=== PATIENT | female | born 1975 | race Caucasian/White ===

== ENCOUNTER → 2019-11-01 09:16 | Outpatient (BNVA) | payer MEDICARE, SELFPAY | PROVIDERS: Family Provider Family Medicine; PCP Family Medicine; Visit Provider Psychiatry & Neurology Psychiatry | DX: F33.42 Major depressive disorder, recurrent, in full remission (principal); F41.0 Panic disorder [episodic paroxysmal anxiety]; F60.7 Dependent personality disorder; F60.3 Borderline personality disorder; Z79.899 Other long term (current) drug therapy | CPT/HCPCS: 99213; 80061; 80335; 83036 ==

== ENCOUNTER → 2020-01-18 08:33 | Outpatient (BNVA) | payer MEDICARE, MEDICAID, SELFPAY | PROVIDERS: Family Provider Family Medicine; PCP Family Medicine; Visit Provider Psychiatry & Neurology Psychiatry | DX: F33.42 Major depressive disorder, recurrent, in full remission (principal); F41.0 Panic disorder [episodic paroxysmal anxiety]; F60.3 Borderline personality disorder; F60.7 Dependent personality disorder; F43.12 Post-traumatic stress disorder, chronic | CPT/HCPCS: 99213 ==

== ENCOUNTER → 2020-02-29 07:48 | Outpatient (BNVA) | payer MEDICARE, MEDICAID, SELFPAY | PROVIDERS: Family Provider Family Medicine; Visit Provider Specialist | DX: G43.711 Chronic migraine without aura, intractable, with status migrainosus (principal); G40.209 Localization-related (focal) (partial) symptomatic epilepsy and epileptic syndromes with complex partial seizures, not intractable, without status epilepticus | CPT/HCPCS: 64615; 99213; J0585 ==

== ENCOUNTER → 2020-03-06 08:02 | Outpatient (BNVA) | payer MEDICARE, MEDICAID, SELFPAY | PROVIDERS: Family Provider Family Medicine; Visit Provider Psychiatry & Neurology Psychiatry | DX: F33.42 Major depressive disorder, recurrent, in full remission (principal); F41.0 Panic disorder [episodic paroxysmal anxiety]; F60.3 Borderline personality disorder; F41.1 Generalized anxiety disorder | CPT/HCPCS: 99213 ==

== ENCOUNTER → 2020-03-28 07:27 | Outpatient (BNVA) | payer MEDICARE, MEDICAID, SELFPAY | PROVIDERS: Family Provider Family Medicine; Visit Provider Psychiatry & Neurology Psychiatry | DX: F41.0 Panic disorder [episodic paroxysmal anxiety] (principal); F33.42 Major depressive disorder, recurrent, in full remission; F60.3 Borderline personality disorder; F43.12 Post-traumatic stress disorder, chronic | CPT/HCPCS: 99214 ==

== ENCOUNTER → 2020-04-11 07:28 | Outpatient (BNVA) | payer MEDICARE, MEDICAID, SELFPAY | PROVIDERS: Family Provider Family Medicine; Visit Provider Psychiatry & Neurology Psychiatry | DX: F33.42 Major depressive disorder, recurrent, in full remission (principal); F41.0 Panic disorder [episodic paroxysmal anxiety]; F60.3 Borderline personality disorder; F32.81 Premenstrual dysphoric disorder | CPT/HCPCS: 99213 ==

== ENCOUNTER → 2020-06-06 09:40 | Outpatient (BNVA) | payer MEDICARE, MEDICAID, SELFPAY | PROVIDERS: Family Provider Family Medicine; Visit Provider Psychiatry & Neurology Psychiatry | DX: F33.42 Major depressive disorder, recurrent, in full remission (principal); F41.0 Panic disorder [episodic paroxysmal anxiety]; F32.81 Premenstrual dysphoric disorder; F60.3 Borderline personality disorder | CPT/HCPCS: 99213 ==

== ENCOUNTER → 2020-08-06 07:30 | Outpatient (BNVA) | payer MEDICARE, MEDICAID, SELFPAY | PROVIDERS: Family Provider Family Medicine; Visit Provider Psychiatry & Neurology Psychiatry | DX: F32.81 Premenstrual dysphoric disorder (principal); F33.42 Major depressive disorder, recurrent, in full remission; F41.0 Panic disorder [episodic paroxysmal anxiety]; F60.3 Borderline personality disorder; G43.711 Chronic migraine without aura, intractable, with status migrainosus; Z01.419 Encounter for gynecological examination (general) (routine) without abnormal findings | CPT/HCPCS: 99213 ==

== ENCOUNTER → 2020-09-02 08:05 | Outpatient (BNVA) | payer MEDICARE, MEDICAID, SELFPAY | PROVIDERS: Family Provider Family Medicine; Visit Provider Psychiatry & Neurology Psychiatry | DX: F32.81 Premenstrual dysphoric disorder (principal); F32.9 Major depressive disorder, single episode, unspecified; F41.0 Panic disorder [episodic paroxysmal anxiety]; F60.3 Borderline personality disorder; Z79.899 Other long term (current) drug therapy; G43.711 Chronic migraine without aura, intractable, with status migrainosus | CPT/HCPCS: 99215 ==

== ENCOUNTER → 2020-09-03 10:29 | Outpatient (BNVA) | payer MEDICARE, MEDICAID, SELFPAY | PROVIDERS: Family Provider Family Medicine; Visit Provider Psychiatry & Neurology Psychiatry | DX: Z79.899 Other long term (current) drug therapy (principal) | CPT/HCPCS: 80335 ==

== ENCOUNTER → 2020-09-24 07:36 | Outpatient (BNVA) | payer MEDICARE, MEDICAID, SELFPAY | PROVIDERS: Family Provider Family Medicine; PCP Family Medicine; Visit Provider Psychiatry & Neurology Psychiatry | DX: F33.9 Major depressive disorder, recurrent, unspecified (principal); F41.0 Panic disorder [episodic paroxysmal anxiety]; F60.3 Borderline personality disorder; Z79.899 Other long term (current) drug therapy | CPT/HCPCS: 99214 ==

== ENCOUNTER → 2020-10-22 07:32 | Outpatient (BNVA) | payer MEDICARE, MEDICAID, SELFPAY | PROVIDERS: Family Provider Family Medicine; PCP Family Medicine; Visit Provider Psychiatry & Neurology Psychiatry | DX: F33.42 Major depressive disorder, recurrent, in full remission (principal); G43.711 Chronic migraine without aura, intractable, with status migrainosus; F41.0 Panic disorder [episodic paroxysmal anxiety]; F60.3 Borderline personality disorder; Z79.899 Other long term (current) drug therapy | CPT/HCPCS: 99213 ==

== ENCOUNTER → 2020-11-04 09:20 | Outpatient (BNVA) | payer MEDICARE, MEDICAID, SELFPAY | PROVIDERS: Family Provider Family Medicine; PCP Family Medicine; Visit Provider Psychiatry & Neurology Psychiatry | DX: Z79.899 Other long term (current) drug therapy (principal) | CPT/HCPCS: 80061; 80335; 83036 ==

== ENCOUNTER → 2021-01-16 08:18 | Outpatient (BNVA) | payer MEDICARE, MEDICAID, SELFPAY | PROVIDERS: Family Provider Family Medicine; PCP Family Medicine; Visit Provider Psychiatry & Neurology Psychiatry | DX: F33.1 Major depressive disorder, recurrent, moderate (principal); F41.0 Panic disorder [episodic paroxysmal anxiety]; F60.3 Borderline personality disorder | CPT/HCPCS: 99214 ==

== ENCOUNTER → 2021-01-23 10:06 | Outpatient (BNVA) | payer MEDICARE, MEDICAID, SELFPAY | PROVIDERS: Family Provider Family Medicine; PCP Family Medicine; Visit Provider Psychiatry & Neurology Psychiatry | DX: F33.1 Major depressive disorder, recurrent, moderate (principal); F41.0 Panic disorder [episodic paroxysmal anxiety]; F60.3 Borderline personality disorder; F32.81 Premenstrual dysphoric disorder | CPT/HCPCS: 99214 ==

== ENCOUNTER → 2021-02-05 08:42 | Outpatient (BNVA) | payer MEDICARE, MEDICAID, SELFPAY | PROVIDERS: Family Provider Family Medicine; PCP Family Medicine; Visit Provider Psychiatry & Neurology Psychiatry | DX: F41.0 Panic disorder [episodic paroxysmal anxiety] (principal); F60.3 Borderline personality disorder; F32.81 Premenstrual dysphoric disorder; F33.0 Major depressive disorder, recurrent, mild; Z79.899 Other long term (current) drug therapy | CPT/HCPCS: 99215 ==

== ENCOUNTER → 2021-02-06 09:26 | Outpatient (BNVA) | payer MEDICARE, MEDICAID, SELFPAY | PROVIDERS: Family Provider Family Medicine; PCP Family Medicine; Visit Provider Psychiatry & Neurology Psychiatry | DX: Z79.899 Other long term (current) drug therapy (principal) | CPT/HCPCS: 80335 ==

== ENCOUNTER → 2021-02-11 07:40 | Outpatient (BNVA) | payer MEDICARE, MEDICAID, SELFPAY | PROVIDERS: Family Provider Family Medicine; PCP Family Medicine; Visit Provider Psychiatry & Neurology Psychiatry | DX: F33.2 Major depressive disorder, recurrent severe without psychotic features (principal); F41.0 Panic disorder [episodic paroxysmal anxiety]; F60.3 Borderline personality disorder; F32.81 Premenstrual dysphoric disorder | CPT/HCPCS: 99214 ==

== ENCOUNTER → 2021-02-20 08:10 | Outpatient (BNVA) | payer MEDICARE, MEDICAID, SELFPAY | PROVIDERS: Family Provider Family Medicine; PCP Family Medicine; Visit Provider Psychiatry & Neurology Psychiatry | DX: F33.0 Major depressive disorder, recurrent, mild (principal); F41.0 Panic disorder [episodic paroxysmal anxiety]; F60.3 Borderline personality disorder; F32.81 Premenstrual dysphoric disorder | CPT/HCPCS: 99214 ==

== ENCOUNTER → 2021-03-07 09:23 | Outpatient (BNVA) | payer MEDICARE, MEDICAID, SELFPAY | PROVIDERS: Family Provider Family Medicine; PCP Family Medicine; Visit Provider Psychiatry & Neurology Psychiatry | DX: F33.40 Major depressive disorder, recurrent, in remission, unspecified (principal); F32.81 Premenstrual dysphoric disorder; G43.711 Chronic migraine without aura, intractable, with status migrainosus; F60.3 Borderline personality disorder; F41.0 Panic disorder [episodic paroxysmal anxiety] | CPT/HCPCS: 99214 ==

== ENCOUNTER → 2021-04-03 08:24 | Outpatient (BNVA) | payer MEDICARE, MEDICAID, SELFPAY | PROVIDERS: Family Provider Family Medicine; PCP Family Medicine; Visit Provider Psychiatry & Neurology Psychiatry | DX: F33.40 Major depressive disorder, recurrent, in remission, unspecified (principal); F32.81 Premenstrual dysphoric disorder; F60.3 Borderline personality disorder; F41.0 Panic disorder [episodic paroxysmal anxiety] | CPT/HCPCS: 99214 ==

== ENCOUNTER → 2021-04-23 07:31 | Outpatient (BNVA) | payer MEDICARE, MEDICAID, SELFPAY | PROVIDERS: Family Provider Family Medicine; PCP Family Medicine; Visit Provider Psychiatry & Neurology Psychiatry | DX: F33.1 Major depressive disorder, recurrent, moderate (principal); F60.3 Borderline personality disorder; F41.0 Panic disorder [episodic paroxysmal anxiety]; Z79.899 Other long term (current) drug therapy | CPT/HCPCS: 99215 ==

== ENCOUNTER → 2021-04-24 09:09 | Outpatient (BNVA) | payer MEDICARE, MEDICAID, SELFPAY | PROVIDERS: Family Provider Family Medicine; PCP Family Medicine; Visit Provider Psychiatry & Neurology Psychiatry | DX: F33.1 Major depressive disorder, recurrent, moderate (principal); Z79.899 Other long term (current) drug therapy | CPT/HCPCS: 80335 ==

== ENCOUNTER → 2021-04-30 07:19 | Outpatient (BNVA) | payer MEDICARE, MEDICAID, SELFPAY | PROVIDERS: Family Provider Family Medicine; PCP Family Medicine; Visit Provider Psychiatry & Neurology Psychiatry | DX: F41.0 Panic disorder [episodic paroxysmal anxiety] (principal); F32.81 Premenstrual dysphoric disorder; F60.3 Borderline personality disorder; F33.41 Major depressive disorder, recurrent, in partial remission | CPT/HCPCS: 99214 ==

== ENCOUNTER 2021-05-06 09:41 | Outpatient (CLI) | payer MEDICARE, MEDICAID, SELFPAY ==
--- NOTE | 2021-05-06 10:13 | MM_ITS ---
WS: [id number] SCREENING DIGITAL MAMMOGRAM WITH CAD HISTORY: Z12.39 - Encounter for other screening for malignant neoplasm... COMPARISON: 02/08/2019 Bilateral CC and MLO views submitted. Computer aided detection analyzed. Breast composition: The breasts are heterogeneously dense, which may obscure small masses. No suspici ous masses, microcalcifications or architectural distortion. MM/[place] [id number] IMPRESSION: BI-RADS: 1-Negative FOLLOW UP: 1 Year Follow-up
== END 2021-05-06 09:42 | disposition home or self-care (01) ==
PROVIDERS: Visit Provider Nurse Practitioner Women's Health
DX: Z12.31 Encounter for screening mammogram for malignant neoplasm of breast (principal)
CPT/HCPCS: 77067

== ENCOUNTER → 2021-05-13 09:09 | Outpatient (BNVA) | payer MEDICARE, MEDICAID, SELFPAY | PROVIDERS: Visit Provider Psychiatry & Neurology Psychiatry | DX: F33.41 Major depressive disorder, recurrent, in partial remission (principal); Z79.899 Other long term (current) drug therapy | CPT/HCPCS: 80335 ==

== ENCOUNTER → 2021-06-02 13:50 | Outpatient (BNVA) | payer MEDICARE, MEDICAID, SELFPAY | PROVIDERS: Visit Provider Specialist | DX: G40.909 Epilepsy, unspecified, not intractable, without status epilepticus (principal); G40.209 Localization-related (focal) (partial) symptomatic epilepsy and epileptic syndromes with complex partial seizures, not intractable, without status epilepticus; G43.711 Chronic migraine without aura, intractable, with status migrainosus | CPT/HCPCS: 64615; 99214; J0585 ==

== ENCOUNTER → 2021-06-16 10:13 | Outpatient (BNVA) | payer MEDICARE, MEDICAID, SELFPAY | PROVIDERS: Visit Provider Psychiatry & Neurology Psychiatry | DX: F33.42 Major depressive disorder, recurrent, in full remission (principal); F60.3 Borderline personality disorder; F41.0 Panic disorder [episodic paroxysmal anxiety]; F32.81 Premenstrual dysphoric disorder | CPT/HCPCS: 99214 ==

== ENCOUNTER → 2021-07-03 07:27 | Outpatient (BNVA) | payer MEDICARE, MEDICAID, SELFPAY | PROVIDERS: Visit Provider Psychiatry & Neurology Psychiatry | DX: F33.42 Major depressive disorder, recurrent, in full remission (principal); F41.0 Panic disorder [episodic paroxysmal anxiety]; F32.81 Premenstrual dysphoric disorder; F60.3 Borderline personality disorder | CPT/HCPCS: 99214 ==

== ENCOUNTER → 2021-07-21 12:48 | Outpatient (BNVA) | payer MEDICARE, MEDICAID, SELFPAY | PROVIDERS: Referring Provider Specialist; Visit Provider Specialist | DX: G40.209 Localization-related (focal) (partial) symptomatic epilepsy and epileptic syndromes with complex partial seizures, not intractable, without status epilepticus (principal); G40.909 Epilepsy, unspecified, not intractable, without status epilepticus | CPT/HCPCS: 95816 ==

== ENCOUNTER → 2021-08-04 06:51 | Outpatient (BNVA) | payer MEDICARE, MEDICAID, SELFPAY | PROVIDERS: Visit Provider Psychiatry & Neurology Psychiatry | DX: F33.42 Major depressive disorder, recurrent, in full remission (principal); F60.3 Borderline personality disorder; F41.0 Panic disorder [episodic paroxysmal anxiety]; F32.81 Premenstrual dysphoric disorder | CPT/HCPCS: 99214 ==

== ENCOUNTER → 2021-08-28 12:11 | Outpatient (BNVA) | payer MEDICARE, MEDICAID, SELFPAY | PROVIDERS: PCP Family Medicine; Visit Provider Specialist | DX: G43.709 Chronic migraine without aura, not intractable, without status migrainosus (principal); G40.109 Localization-related (focal) (partial) symptomatic epilepsy and epileptic syndromes with simple partial seizures, not intractable, without status epilepticus; G40.409 Other generalized epilepsy and epileptic syndromes, not intractable, without status epilepticus | CPT/HCPCS: 64615; 99213; J0585 ==

== ENCOUNTER → 2021-09-04 08:49 | Outpatient (BNVA) | payer MEDICARE, MEDICAID, SELFPAY | PROVIDERS: Visit Provider Social Worker | DX: F33.42 Major depressive disorder, recurrent, in full remission (principal); F41.0 Panic disorder [episodic paroxysmal anxiety]; F60.3 Borderline personality disorder | CPT/HCPCS: 90837; 90834 ==

== ENCOUNTER → 2021-09-08 08:07 | Outpatient (BNVA) | payer MEDICARE, MEDICAID, SELFPAY | PROVIDERS: Visit Provider Psychiatry & Neurology Psychiatry | DX: F33.42 Major depressive disorder, recurrent, in full remission (principal); F60.3 Borderline personality disorder; F41.0 Panic disorder [episodic paroxysmal anxiety]; F32.81 Premenstrual dysphoric disorder; G43.711 Chronic migraine without aura, intractable, with status migrainosus | CPT/HCPCS: 99214 ==

== ENCOUNTER 2021-09-18 12:46 | Emergency (ER) | payer MEDICARE, MEDICAID, SELFPAY ==
[2021-09-18 12:53] VITALS: BP 126/87; PULSE 94; RESP 18; TEMP 36.3; O2SAT 98; BMI 31.1
[2021-09-18] MEDS: tetanus-diphtheria tox (adult) 0.5 mL SDV IM (13:10)
--- NOTE | 2021-09-18 13:12 | W.ED.WOUNDLC ---
HPI - Wound/Laceration General: Chief Complaint: Wound/Laceration Stated Complaint: Injury to Left Hand/Finger Time Seen by Provider: 09/18/21 12:59 Source: patient Mode of arrival: ambulatory Limitations: no limitations History of Present Illness: HPI narrative: Patient is a 45-year-old female presents to ED today with a complaint of a left index finger laceration that she sustained after cutting it on a tin can. Last tetanus is unknown. Patient copiously irrigated laceration following injury. Onset (ago): hour(s) Place: home Patient tetanus UTD: No Context: accidental Associated symptoms: Reports no associated symptoms Treatments prior to arrival: other (Irrigation) Review of Systems Musc: Reports: extremity pain (Left index finger); Denies: extremity swelling, joint swelling, joint redness or joint warmth Skin/Breast: Reports: other (Left index finger laceration) PFSH ED PFSH: Medical History Borderline personality disorder Chronic migraine without aura, intractable, with status migrainosus No pertinent past medical history neghx: htn,dm,thyroid,dvt/pe PCP: None Other skilled nursing (current) drug therapy Panic disorder [episodic paroxysmal anxiety] Partial epilepsy secondarily generalized Premenstrual dysphoric disorder Psychiatric care Surgical History History of vaginal hysterectomy (10/31/13) TVH (Still has ovaries) Dx: Menorrhagia, Dysmenorrhea, Fibroids. Performed by Dr Rivas at [facility] in [place], [place]. Family History Grandmother Stroke maternal Family/Other Diabetes maternal great aunt Denies family history of Colon cancer Ovarian cancer Heart disease Hypercholesteremia Breast cancer Hypertension Uterine cancer Thyroid disease Physical Exam Const: COMMON NORMALS: no acute distress, patient oriented x3, no limitations and alert Extremity: OTHER: Patient has an extremely small 0.5cm laceration to L lateral DIP joint; laceration is superficial; bleeding controlled; sensory intact; full ROM of DIP joint against resistance Neuro: COMMON NORMALS: patient oriented x3, moves all extremities, no focal motor deficits and no sensory deficits noted SENSORIUM/ORIENTATION: Yes alert Skin: NARRATIVE SKIN EXAM: See extremity assessment for pertinent skin findings Procedures Laceration Laceration 1: Site: hand (L index finger) Side (If applicable): left and right Size (cm): 0.5 Description: linear Depth: simple, single layer Pre-repair: wound explored and irrigated extensively Skin layer closed with: other (skin adhesive/glue) Course Vital Signs: Vital signs: Vital Signs Temperature 97.3 F L 09/18/21 12:53 Pulse Rate 88 09/18/21 13:27 Respiratory Rate 18 09/18/21 13:27 Blood Pressure 133/84 09/18/21 13:27 Pulse Oximetry 100 09/18/21 13:27 Discharge Plan Discharge Patient Disposition: Home Clinical Impression: Laceration of left index finger Qualifiers: Encounter type: initial encounter Damage to nail status: without damage Foreign body presence: without foreign body Qualified Code(s): S61.211A - Laceration without foreign body of left index finger without damage to nail, initial encounter Condition: Stable Prescriptions: No Action norgestimate-ethinyl estradiol [Sprintec (28)] 0.25-35 mg-mcg tablet 1 tab PO DAILY Qty: 84 RF: 4 diazepam [Valium] 5 mg tablet 5 mg PO QID Qty: 120 RF: 2 nortriptyline 75 mg capsule 75 mg PO .qhs Qty: 30 RF: 5 nortriptyline 50 mg capsule 50 mg PO .qhs Qty: 30 RF: 5 sertraline 100 mg tablet 100 mg PO DAILY Qty: 30 RF: 5 topiramate [Topamax] 50 mg tablet 50 mg PO .QHS Qty: 30 RF: 5 clobazam [Onfi] 20 mg tablet 20 mg PO BID Qty: 60 RF: 5 Discharge Orders: Discharge ED (Routine); Ordered 09/18/21 Ordered By: Ashley Diaz Referrals: Marcelo Bobo MD [Primary Care Provider] - Patient Instructions: Finger Laceration (ED), Skin Adhesive Care (ED) Activity Restrictions/Additional Instructions: Keep wound/laceration clean with warm soap and water twice daily. Monitor for signs of infection such as redness, swelling, increased pain, or drainage. Please seek medical re-evaluation if these occur. If your wound was closed with Steri-Strips or glue/adhesive these will fall off within the next week or so. Coding Level of Care Code ED Wood Products Manufacturer for Doroteo Brumfield
[2021-09-18 13:27] VITALS: BP 133/84; PULSE 88; RESP 18; O2SAT 100
== END 2021-09-18 13:29 | disposition home or self-care (01) ==
PROVIDERS: Emergency Provider Physician Assistant; PCP Family Medicine
DX: S61.211A Laceration without foreign body of left index finger without damage to nail, initial encounter (principal); W26.8XXA Contact with other sharp object(s), not elsewhere classified, initial encounter
CPT/HCPCS: 12001; 90471; 90714; 99283

== ENCOUNTER → 2021-09-25 12:24 | Outpatient (BNVA) | payer MEDICARE, MEDICAID, SELFPAY | PROVIDERS: Visit Provider Social Worker | DX: F33.42 Major depressive disorder, recurrent, in full remission (principal); F41.0 Panic disorder [episodic paroxysmal anxiety]; F60.3 Borderline personality disorder | CPT/HCPCS: 90837; 90834 ==

== ENCOUNTER → 2021-10-29 15:29 | Outpatient (BNVA) | payer MEDICARE, MEDICAID, SELFPAY | PROVIDERS: Visit Provider Specialist | DX: G40.209 Localization-related (focal) (partial) symptomatic epilepsy and epileptic syndromes with complex partial seizures, not intractable, without status epilepticus (principal); G40.409 Other generalized epilepsy and epileptic syndromes, not intractable, without status epilepticus; G43.711 Chronic migraine without aura, intractable, with status migrainosus; F60.3 Borderline personality disorder | CPT/HCPCS: 99214 ==

== ENCOUNTER → 2021-11-20 08:55 | Outpatient (BNVA) | payer MEDICARE, MEDICAID, SELFPAY | PROVIDERS: Visit Provider Social Worker | DX: F33.42 Major depressive disorder, recurrent, in full remission (principal); F60.3 Borderline personality disorder; F41.0 Panic disorder [episodic paroxysmal anxiety] | CPT/HCPCS: 90834 ==

== ENCOUNTER → 2021-12-01 07:41 | Outpatient (BNVA) | payer MEDICARE, MEDICAID, SELFPAY | PROVIDERS: Visit Provider Psychiatry & Neurology Psychiatry | DX: Z79.899 Other long term (current) drug therapy (principal); F33.0 Major depressive disorder, recurrent, mild; F33.42 Major depressive disorder, recurrent, in full remission; F60.3 Borderline personality disorder; F41.0 Panic disorder [episodic paroxysmal anxiety]; F32.81 Premenstrual dysphoric disorder | CPT/HCPCS: 99214 ==

== ENCOUNTER → 2021-12-04 10:57 | Outpatient (BNVA) | payer MEDICARE, MEDICAID, SELFPAY | PROVIDERS: Visit Provider Psychiatry & Neurology Psychiatry | DX: F41.0 Panic disorder [episodic paroxysmal anxiety] (principal); F60.3 Borderline personality disorder | CPT/HCPCS: 90837; 80335; 90834 ==

== ENCOUNTER → 2021-12-22 07:26 | Outpatient (BNVA) | payer MEDICARE, MEDICAID, SELFPAY | PROVIDERS: Visit Provider Psychiatry & Neurology Psychiatry | DX: F33.42 Major depressive disorder, recurrent, in full remission (principal); F60.3 Borderline personality disorder; F41.0 Panic disorder [episodic paroxysmal anxiety]; F32.81 Premenstrual dysphoric disorder; Z79.899 Other long term (current) drug therapy; F33.41 Major depressive disorder, recurrent, in partial remission | CPT/HCPCS: 99443; 99214 ==

== ENCOUNTER → 2022-02-03 10:05 | Outpatient (BNVA) | payer MEDICARE, MEDICAID, SELFPAY | PROVIDERS: Referring Provider Registered Nurse Neonatal Intensive Care; Visit Provider Otolaryngology | DX: H92.03 Otalgia, bilateral (principal); H90.0 Conductive hearing loss, bilateral; H61.23 Impacted cerumen, bilateral | CPT/HCPCS: 69210; 99203 ==

== ENCOUNTER → 2022-02-13 14:23 | Outpatient (BNVA) | payer MEDICARE, MEDICAID, SELFPAY | PROVIDERS: Visit Provider Social Worker | DX: F33.41 Major depressive disorder, recurrent, in partial remission (principal); F60.3 Borderline personality disorder; F41.0 Panic disorder [episodic paroxysmal anxiety] | CPT/HCPCS: 90837; 90834 ==

== ENCOUNTER → 2022-03-02 14:28 | Outpatient (BNVA) | payer MEDICARE, MEDICAID, SELFPAY | PROVIDERS: Visit Provider Social Worker | DX: F33.41 Major depressive disorder, recurrent, in partial remission (principal); F60.3 Borderline personality disorder; F41.0 Panic disorder [episodic paroxysmal anxiety] | CPT/HCPCS: 90837; 90834 ==

== ENCOUNTER → 2022-03-06 09:33 | Outpatient (BNVA) | payer MEDICARE, MEDICAID, SELFPAY | PROVIDERS: Visit Provider Psychiatry & Neurology Psychiatry | DX: F33.41 Major depressive disorder, recurrent, in partial remission (principal); F33.42 Major depressive disorder, recurrent, in full remission; F60.3 Borderline personality disorder; F41.0 Panic disorder [episodic paroxysmal anxiety]; Z79.899 Other long term (current) drug therapy; F32.81 Premenstrual dysphoric disorder | CPT/HCPCS: 99214 ==

== ENCOUNTER → 2022-03-30 14:32 | Outpatient (BNVA) | payer MEDICARE, MEDICAID, SELFPAY | PROVIDERS: Visit Provider Social Worker | DX: F33.41 Major depressive disorder, recurrent, in partial remission (principal); F32.81 Premenstrual dysphoric disorder; F60.3 Borderline personality disorder; F41.0 Panic disorder [episodic paroxysmal anxiety] | CPT/HCPCS: 90837; 90834 ==

== ENCOUNTER → 2022-05-11 11:57 | Outpatient (BNVA) | payer MEDICARE, MEDICAID, SELFPAY | PROVIDERS: Visit Provider Psychiatry & Neurology Psychiatry | DX: F33.42 Major depressive disorder, recurrent, in full remission (principal); F60.3 Borderline personality disorder; F41.0 Panic disorder [episodic paroxysmal anxiety]; Z79.899 Other long term (current) drug therapy; F33.41 Major depressive disorder, recurrent, in partial remission; L65.9 Nonscarring hair loss, unspecified; R63.5 Abnormal weight gain; G43.711 Chronic migraine without aura, intractable, with status migrainosus | CPT/HCPCS: 80335; 84439; 84443 ==

== ENCOUNTER → 2022-05-15 11:13 | Outpatient (BNVA) | payer MEDICARE, MEDICAID, OTHER, SELFPAY | PROVIDERS: Visit Provider Psychiatry & Neurology Psychiatry | DX: Z79.899 Other long term (current) drug therapy (principal) | CPT/HCPCS: 84481 ==

== ENCOUNTER 2022-05-19 15:27 | Outpatient (CLI) | payer MEDICARE, MEDICAID, SELFPAY ==
--- NOTE | 2022-05-19 15:34 | MM_ITS ---
WS: [id number] BILATERAL 3D TOMOSYNTHESIS DIGITAL SCREENING MAMMOGRAPHY WITH CAD CLINICAL INFORMATION: Z12.39 - Encounter for other screening for malignant neop... HISTORY: Screening mammogram. No current complaints. COMPARISON: May 06, 2021 TECHNIQUE: Bilateral CC and MLO views. FINDINGS: Scattered fibroglandular densities bilaterally. No suspicious focal mass, asymmetry, calcifications, or architectural distortion. No evidence of malignancy. MM/[place] [id number] IMPRESSION: BI-RADS: 1-Negative FOLLOW UP: 1 Year Follow-up Recommend return to annual screening mammography.
== END 2022-05-19 15:28 | disposition home or self-care (01) ==
LOC: RAD 15:27
PROVIDERS: Visit Provider Nurse Practitioner Women's Health
DX: Z12.31 Encounter for screening mammogram for malignant neoplasm of breast (principal)
CPT/HCPCS: 77063; 77067

== ENCOUNTER 2022-05-27 12:45 | Outpatient (CLI) | payer MEDICARE, MEDICAID, SELFPAY ==
--- NOTE | 2022-05-27 13:00 | US_ITS ---
WS: [id number] TRANSVAGINAL PELVIC ULTRASOUND HISTORY: R10.2 - Pelvic and perineal pain COMPARISON: 07/31/2019 Status post hysterectomy. Right ovary: 2.3 cm x 1.3 cm x 1.9 cm. Normal size and vascularity, no cystic or solid masses. Left ovary: 3.0 cm x 2.0 cm x 2.3 cm. Several small follicles associated with the LEFT ovary. No yaya d mass or increased vascularity. No free fluid. US/US transvaginal [id number] IMPRESSION: 1. Prior hysterectomy. 2. Multiple small follicles within the LEFT ovary. No solid mass identified.
== END 2022-05-27 12:46 | disposition home or self-care (01) ==
PROVIDERS: Visit Provider Nurse Practitioner Women's Health
DX: R10.2 Pelvic and perineal pain (principal); Z90.710 Acquired absence of both cervix and uterus
CPT/HCPCS: 76830

== ENCOUNTER 2022-07-06 20:00 | Outpatient (CLI) | payer MEDICARE, MEDICAID, OTHER, SELFPAY | END 2022-07-06 20:01 | disposition home or self-care (01) | LOC: SLEEP 07-07 05:14 | PROVIDERS: PCP Clinical Nurse Specialist Adult Health; Visit Provider Psychiatry & Neurology Psychiatry | DX: F33.2 Major depressive disorder, recurrent severe without psychotic features (principal); G43.711 Chronic migraine without aura, intractable, with status migrainosus; E66.9 Obesity, unspecified; R06.83 Snoring; G47.10 Hypersomnia, unspecified | CPT/HCPCS: 95810 ==

== ENCOUNTER 2022-07-09 08:25 | Outpatient (CLI) | payer MEDICARE, MEDICAID, SELFPAY ==
--- NOTE | 2022-07-09 08:30 | CTR_ITS ---
PROCEDURE INFORMATION: Exam: CT Abdomen And Pelvis Without Contrast Exam date and time: 07/09/2022 8:57 AM Age: 46 years old Clinical indication: Abdominal pain; Tenderness; Left lower quadrant (llq); Prior surgery; Surgery type: Hyst; Additional info: Left lower quadrant tenderness and possible mass palpable TECHNIQUE: Imaging protocol: Computed tomography of the abdomen and pelvis without contrast. Axial, coronal and sagittal reformatted images were created and reviewed. Radiation optimization: All CT scans at this facility use at least one of these dose optimization techniques: automated exposure control; mA and/or kV adjustment per patient size (includes targeted exams where dose is matched to clinical indication); or iterative reconstruction. COMPARISON: CT kidney stone [id number] 04/22/2018 2:38 AM RADIATION DOSE METRICS: Total DLP (mGy-cm): 1417.03 FINDINGS: Liver: Unremarkable. Gallbladder and bile ducts: No radiodense gallstones. No biliary ductal dilatation. Pancreas: Unremarkable. Spleen: Unremarkable. Adrenal glands: Normal. No mass. Kidneys and ureters: Nonobstructing left renal calculi. No hydronephrosis. Stomach and bowel: Moderate amount of retained stool in the colon. No obstruction. No bowel wall thickening. No pneumatosis. Appendix: Normal. Intraperitoneal space: No free fluid. No organized fluid collection. No free air. Vasculature: Unremarkable. No aneurysm. Lymph nodes: No pathologically enlarged lymph nodes. Urinary bladder: Unremarkable as visualized. Reproductive: Status post hysterectomy. 3.7 x 3 cm right adnexal cystic lesion. Bones/joints: No acute osseous abnormality. Soft tissues: Unremarkable. CT/CT abdomen pelvis wo con [id number] IMPRESSION: 1. 3.7 x 3 cm right adnexal cystic lesion. If clinically indicated, pelvic ultrasound may be obtained for further evaluation. 2. Moderate amount of retained stool in the colon. 3. Additional findings, as above.
== END 2022-07-09 08:26 | disposition home or self-care (01) ==
LOC: RAD 08:26
PROVIDERS: PCP Clinical Nurse Specialist Adult Health; Visit Provider Clinical Nurse Specialist Adult Health
DX: R19.04 Left lower quadrant abdominal swelling, mass and lump (principal)
CPT/HCPCS: 74176

== ENCOUNTER → 2022-07-15 13:53 | Outpatient (BNVA) | payer MEDICARE, MEDICAID, OTHER, SELFPAY | PROVIDERS: PCP Clinical Nurse Specialist Adult Health; Visit Provider Psychiatry & Neurology Psychiatry | DX: Z79.899 Other long term (current) drug therapy (principal) | CPT/HCPCS: 80061; 83036 ==

== ENCOUNTER → 2022-07-16 16:16 | Outpatient (BNVA) | payer MEDICARE, MEDICAID, SELFPAY | PROVIDERS: PCP Clinical Nurse Specialist Adult Health; Visit Provider Nurse Practitioner Women's Health | DX: R10.2 Pelvic and perineal pain (principal); N83.201 Unspecified ovarian cyst, right side | CPT/HCPCS: 76830 ==

== ENCOUNTER 2022-09-13 13:35 | Emergency (ER) | payer MEDICARE, MEDICAID, SELFPAY ==
[2022-09-13 13:52] VITALS: BP 180/120; PULSE 116; RESP 18; TEMP 35.8; O2SAT 96
--- NOTE | 2022-09-13 14:05 | XRR_ITS ---
PROCEDURE INFORMATION: Exam: XR Left Knee Exam date and time: 09/13/2022 3:47 PM Age: 46 years old Clinical indication: Injury or trauma; Fall; Blunt trauma; Knee; Left TECHNIQUE: Imaging protocol: Radiologic exam of the Left knee. Views: 3 views. COMPARISON: No relevant prior studies available. FINDINGS: Bones/joints: Visualized osseous structures are intact. Negative for fracture. Joint spaces are preserved. Soft tissues: Normal. XR/XR knee LT 3V* [id number] IMPRESSION: No acute findings.
--- NOTE | 2022-09-13 15:04 | ED_ITS ---
HPI - Fall General: Chief Complaint: Fall Stated Complaint: fell and hurt left knee. Time Seen by Provider: 09/13/22 14:29 History of Present Illness: Patient is a 46-year-old female comes to the ED with left knee pain. Patient says approximately 6 weeks ago she fell from a ladder approximately 2 to 3 feet in the air and landed on her left knee. She was able to get up and ambulate on left knee with mild pain and did not think much of it and did not get checked out. Approximately 2 weeks ago she fell from a standing position and her left kneecap at the floor again. Since the second injury her left knee pain is gotten a lot worse. She has trouble ambulating on it due to the pain. She rates the pain currently a 7 out of 10. Sometimes when she bends it she hears a pop. Straighten her knee out causes more pain. She has been taking Tylenol and ibuprofen at home to help with pain. Associated symptoms-after fall: Denies abdominal pain, chest pain, headache(s), hematuria or neck pain Review of Systems Const: Denies: fever(s), chills or fatigue Eyes: Denies: change in vision or eye discomfort ENMT: Denies: throat pain, odynophagia, nasal discharge or nasal congestion Card: Denies: chest pain, palpitations, edema, swelling of feet/ankles, dyspnea on exertion or orthopnea Resp: Denies: dyspnea, productive cough or non-productive cough GI: Denies: abdominal pain, nausea, vomiting, diarrhea, constipation or hematochezia : Denies: flank pain, dysuria or hematuria Musc: Reports: extremity pain (Left knee pain); Denies: neck pain, back pain or extremity swelling Skin/Breast: Denies: rash or new lesions Neuro: Denies: headache(s), numbness in extremities or weakness in extremities PFS ED PFSH: Medical History Borderline personality disorder Chronic migraine without aura, intractable, with status migrainosus Loss of hair Other skilled nursing (current) drug therapy Panic disorder [episodic paroxysmal anxiety] Partial epilepsy secondarily generalized Premenstrual dysphoric disorder Psychiatric care Surgical History History of vaginal hysterectomy (10/31/13) TVH (Still has ovaries) Dx: Menorrhagia, Dysmenorrhea, Fibroids. Performed by Dr Rivas at [facility] in [place], [place]. Family History Grandmother Stroke maternal Family/Other Diabetes maternal great aunt Denies family history of Colon cancer Ovarian cancer Heart disease Hypercholesteremia Breast cancer Hypertension Uterine cancer Thyroid disease Social History Smoking and tobacco status: never smoked Second hand smoke exposure: No Smoking risk assessment/counseling performed?: No Alcohol intake: never Desire information about alcohol rehabilitation?: No Counseling given: No Desire information about substance/drug rehabilitation?: No Counseling given: No Physical Exam Const: COMMON NORMALS: no acute distress, patient oriented x3 and alert GENERAL APPEARANCE: cooperative HENMT: COMMON NORMALS: normocephalic HEAD & SCALP: normocephalic MOUTH: Normal oral and palatal mucosa present THROAT: posterior oropharynx normal and uvula midline Neck/C-Spine: COMMON NORMALS: supple GENERAL: Yes normal visual inspection Resp: COMMON NORMALS: normal respiratory effort, No retractions, No use of accessory muscles and clear to auscultation bilaterally AUSCULTATION: clear to auscultation bilaterally Cardio: COMMON NORMALS: regular rate, regular rhythm, S1 normal heart sound present, S2 normal heart sound present, No gallops present (Cardio), No clicks present (Cardio), No murmurs present (Cardio) and Peripheral pulses 2+ throughout RATE: regular rate RHYTHM: regular rhythm HEART SOUNDS: S1 normal heart sound present and S2 normal heart sound present PERIPHERAL PULSES: Peripheral pulses 2+ throughout GI: COMMON NORMALS: Normal to inspection, nondistended, normoactive bowel sounds present, Soft to palpation, non-tender and no masses PALPATION: Yes Soft to palpation : COMMON NORMALS: Yes no CVA tenderness BLADDER/KIDNEY EXAM: Yes no CVA tenderness Back/Pelvis: COMMON NORMALS: no CVA tenderness Extremity: NARRATIVE EXTREMITY EXAM: Left knee?she has some tenderness over her patella. Full range of motion. Neurovascular intact distally. She tried to weight-bear in room and was limping and minimizing any weight on left leg. Neuro: COMMON NORMALS: patient oriented x3 SENSORIUM/ORIENTATION: Yes alert GAIT: Yes Normal gait present Skin: GENERAL SKIN EXAM: dry skin Course Vital Signs: Vital signs: Vital Signs Temperature 96.5 F L 09/13/22 13:52 Pulse Rate 74 09/13/22 15:45 Respiratory Rate 14 09/13/22 15:45 Blood Pressure 141/74 09/13/22 15:45 Pulse Oximetry 97 09/13/22 15:45 MDM - Fall Medical Decision Making Patient is a 46-year-old female comes to the ED with left knee pain. Patient says approximately 6 weeks ago she fell from a ladder approximately 2 to 3 feet in the air and landed on her left knee. Vitals are stable. Patient has some t enderness over her left patella but the rest of exam is benign. neurovascular intact distally. X-ray of left knee showed no acute findings or fractures. Patient was diagnosed with left knee pain and I placed an order with case management for patient to be scheduled with a follow-up appointment for further evaluation of left knee pain. She was discharged home with some meloxicam to help with pain. Return to ED precautions given. Use your at home crutches to help with ambulation. Patient understood agree with plan. Lab Data Radiology Impressions Knee X-Ray 09/13/22 14:05 IMPRESSION: No acute findings. Discharge Plan Discharge Patient Disposition: Home Clinical Impression: Knee pain, left Qualifiers: Chronicity: acute Qualified Code(s): M25.562 - Pain in left knee Condition: Stable Prescriptions: New meloxicam 15 mg tablet 15 mg PO DAILY Qty: 15 0RF No Action norgestimate-ethinyl estradiol [Sprintec (28)] 0.25-35 mg-mcg tablet 1 tab PO DAILY Qty: 84 3RF Rx Instructions: switch to a new pack after taking the third week, do not take last weeks pills nortriptyline 50 mg capsule 50 mg PO .qhs Qty: 30 11RF Rx Instructions: Take with 75mg capsule for total daily dose of 125mg. nortriptyline 75 mg capsule 75 mg PO .qhs Qty: 30 11RF Rx Instructions: Take with 50mg capsule for total nightly dose of 125mg. sertraline 100 mg tablet 100 mg PO DAILY Qty: 30 11RF aripiprazole [Abilify] 2 mg tablet 2 mg PO .qhs Qty: 30 5RF diazepam 5 mg tablet 5 mg PO BID Qty: 60 5RF albuterol sulfate [Ventolin HFA] 90 mcg/actuation HFA aerosol inhaler 1 inh inhalation Q4H PRN (Reason: bronchospasm) Qty: 8.5 0RF azithromycin 250 mg tablet See Rx Instructions PO .COMPLEX Qty: 6 0RF Rx Instructions: take 500 mg today (day 1), then 250 mg for 4 days (days 2-5) PO clobazam [Onfi] 20 mg tablet 20 mg PO BID Qty: 60 5RF prednisone 20 mg tablet 20 mg PO DAILY Qty: 2 0RF Discharge Orders: Discharge ED (Routine); Ordered 09/13/22 Ordered By: Jacob Downs Referrals: Jerry Velazquez WIRE COILER [Primary Care Provider] - Discharge Diet: Regular Discharge Activity: Limit activity as instructed and Use walker/crutches as instructed Patient Instructions: Knee Pain (ED) Activity Restrictions/Additional Instructions: Follow-up with medical provider as directed. Case management should be contacting in the next several days to set up an appointment with Ortho for follow-up on knee pain. Use crutches and limit weightbearing to help with ambulation. Rest, ice and elevate left knee. Take medications as prescribed. Return to the ER or your medical provider if condition worsens. Please read and understand discharge instructions. Thank you for choosing [facility] for your healthcare needs today. Please realize this is an emergency room and that we are providing you with a medical screening exam and this may not be complete and all inclusive of all the testing and or work up that you may need to determine your ailment or severity of your illness. It is very important that you follow up as instructed or that you return to the Emergency Department should you have concerns or if your condition changes or worsens in any way. Coding Level of Care Code ED Facing Cutting Machine Operator for Doroteo Brumfield Exam Comprehensive
[2022-09-13] MEDS: ketorolac 60 mg/2 mL INJ IM (15:31)
[2022-09-13 15:45] VITALS: BP 141/74; PULSE 74; RESP 14; O2SAT 97
--- NOTE | 2022-09-14 11:33 | DCPLANNER ---
Addendum entered by Sarai Swanson 10/06/22 13:39: Patient had a follow up appointment with ortho - patient did not attend appointment. Addendum entered by Sarai Swanson 09/17/22 09:30: Patient has a follow up appointment scheduled for Thursday, September 22, 2022 at 3:[address] Lew at ortho. Clinic will call patient with appointment information. Original Note: telehealth case manager had message to schedule a follow up appointment for patient with ortho. telehealth case manager sent patients information to the front office staff at ortho. Patients information will be printed and reviewed. Clinic will call patient with appointment information.
== END 2022-09-13 15:44 | disposition home or self-care (01) ==
PROVIDERS: Emergency Provider Physician Assistant; PCP Clinical Nurse Specialist Adult Health
DX: M25.562 Pain in left knee (principal)
CPT/HCPCS: 73562; 96372; 99284; J1885

== ENCOUNTER 2022-09-21 01:44 | Emergency (ER) | payer MEDICARE, MEDICAID, SELFPAY ==
[2022-09-21 01:45] VITALS: BP 157/86; PULSE 97; RESP 18; TEMP 37.1; O2SAT 98; BMI 34.7
--- NOTE | 2022-09-21 01:49 | ECG_ITS ---
[facility] Test Date: 2022-09-21 Pat Name: Leydi Souza Department: Room: Gender: Female Equine Science Instructor: : 1975 Requested By: Nela Uribe Order Number: [id number] Izzy MD: Asad Mcfadden M.D. Measurements Intervals [place] Rate: 98 P: 58 AR: 152 QRS: 31 QRSD: 93 T: 37 QT: 354 QTc: 452 Interpretive Statements SINUS RHYTHM POSSIBLE LEFT ATRIAL ENLARGEMENT [-0.1mV P-WAVE IN V1/V2] POSSIBLE ANTERIOR MYOCARDIAL INFARCTION , PROBABLY OLD [30 ms Q WAVE IN V3/V4, OR R < 0.2 mV IN V4] No previous ECG available for comparison Electronically Signed On 09-21-2022 14:21:37 CLINICAL QUALITY ANALYST by Asad Mcfadden M.D. [id number]
--- NOTE | 2022-09-21 01:49 | XRR_ITS ---
PROCEDURE INFORMATION: Exam: XR Chest Exam date and time: 09/21/2022 3:01 AM Age: 46 years old Clinical indication: Chest pressure; Patient HX: Right sided chest pain since fall two weeks ago; Additional info: Cp TECHNIQUE: Imaging protocol: Radiologic exam of the chest. Views: 1 view. COMPARISON: CR XR chest 1V [id number] 09/20/2017 6:00 PM FINDINGS: Lungs: Unremarkable. No consolidation. Pleural spaces: Unremarkable. No pleural effusion. No pneumothorax. Heart/Mediastinum: Unremarkable. No cardiomegaly. Bones/joints: Unremarkable. XR/XR chest 1V portable [id number] IMPRESSION: No acute findings.
--- NOTE | 2022-09-21 01:50 | W.ED.CHESTPA ---
HPI - Chest Pain General: Chief Complaint: Abdominal Pain Stated Complaint: rib pain Time Seen by Provider: 09/21/22 01:45 Source: EMS Mode of arrival: EMS Limitations: no limitations History of Present Illness: 46-year-old female states that she was reaching down to grab something at 9 tonight she states she felt a pop in her right lower chest states that since then she been having right-sided chest pain. States it is worsened throughout the night is currently a 7 out of 10 its much worse when she moves her arm she palpates a spot improved with rest denies any shortness of breath denies any radiation of pain. Associated symptoms: Deny abdominal pain, dyspnea, fever(s), nausea or vomiting Review of Systems Const: Denies: fever(s), chills, body aches or change in appetite Eyes: Denies: blurry vision or eye discomfort ENMT: Denies: throat pain or dental pain Card: Reports: chest pain Resp: Denies: dyspnea GI: Denies: abdominal pain, nausea, vomiting or diarrhea : Denies: dysuria Musc: Denies: neck pain or back pain Skin/Breast: Denies: rash Neuro: Denies: headache(s) Psych: Denies: depression Milind/Lymph: Denies: easy bruising All/Imm: Denies: urticaria PFSH ED PFSH: Medical History Borderline personality disorder Chronic migraine without aura, intractable, with status migrainosus Loss of hair 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 Performed by Dr Rivas at [facility] in [place], [place]. Family History Grandmother Stroke maternal Family/Other Diabetes maternal great aunt Denies family history of Colon cancer Ovarian cancer Heart disease Hypercholesteremia Breast cancer Hypertension Uterine cancer Thyroid disease Social History Smoking and tobacco status: never smoked Second hand smoke exposure: No Smoking risk assessment/counseling performed?: No Alcohol intake: never Desire information about alcohol rehabilitation?: No Counseling given: No Desire information about substance/drug rehabilitation?: No Counseling given: No Physical Exam Const: COMMON NORMALS: no acute distress, patient oriented x3 and healthy appearing HENMT: COMMON NORMALS: normocephalic and atraumatic HEAD & SCALP: normocephalic and atraumatic Eye: COMMON NORMALS: Equal, round and reactive pupils present and EOMs intact bilaterally PUPIL: Yes Equal, round and reactive pupils present Neck/C-Spine: COMMON NORMALS: full ROM and supple Chest: COMMONS NORMALS: normal inspection of the chest OTHER: point tender over right chest Resp: COMMON NORMALS: normal respiratory effort, No retractions, No use of accessory muscles and clear to auscultation bilaterally AUSCULTATION: clear to auscultation bilaterally Cardio: COMMON NORMALS: regular rate, regular rhythm and No murmurs present (Cardio) RATE: regular rate RHYTHM: regular rhythm GI: COMMON NORMALS: Normal to inspection, nondistended, normoactive bowel sounds present, Soft to palpation, non-tender and no masses PALPATION: Yes Soft to palpation Extremity: COMMON NORMALS: normal to inspection and full ROM Neuro: COMMON NORMALS: patient oriented x3, moves all extremities and no focal motor deficits Psych: COMMON NORMALS: mental status grossly normal, Normal thought process present and cooperative THOUGHT PROCESS: Normal thought process present Skin: COMMON NORMALS: no rashes or lesions noted and no wounds GENERAL SKIN EXAM: no rashes or lesions noted Course Vital Signs: Vital signs: Vital Signs Temperature 98.8 F 09/21/22 01:45 Pulse Rate 97 09/21/22 01:45 Respiratory Rate 18 09/21/22 01:45 Blood Pressure 157/86 09/21/22 01:45 Pulse Oximetry 98 09/21/22 01:45 Oxygen Delivery Me thod 09/21/22 01:45 MDM - Chest Pain Medical Decision Making Patient presents here with chest wall pain from an injury she is well-appearing here x-ray and EKG are normal she is stable for discharge she is to follow-up with PCP and return if worsening. Discharge Plan Discharge Patient Disposition: Home Clinical Impression: Chest wall pain Condition: Stable Prescriptions: New Naprosyn 500 mg tablet 500 mg PO BID PRN (Reason: pain) Qty: 20 0RF No Action norgestimate-ethinyl estradiol [Sprintec (28)] 0.25-35 mg-mcg tablet 1 tab PO DAILY Qty: 84 3RF Rx Instructions: switch to a new pack after taking the third week, do not take last weeks pills nortriptyline 50 mg capsule 50 mg PO .qhs Qty: 30 11RF Rx Instructions: Take with 75mg capsule for total daily dose of 125mg. nortriptyline 75 mg capsule 75 mg PO .qhs Qty: 30 11RF Rx Instructions: Take with 50mg capsule for total nightly dose of 125mg. sertraline 100 mg tablet 100 mg PO DAILY Qty: 30 11RF aripiprazole [Abilify] 2 mg tablet 2 mg PO .qhs Qty: 30 5RF diazepam 5 mg tablet 5 mg PO BID Qty: 60 5RF albuterol sulfate [Ventolin HFA] 90 mcg/actuation HFA aerosol inhaler 1 inh inhalation Q4H PRN (Reason: bronchospasm) Qty: 8.5 0RF azithromycin 250 mg tablet See Rx Instructions PO .COMPLEX Qty: 6 0RF Rx Instructions: take 500 mg today (day 1), then 250 mg for 4 days (days 2-5) PO clobazam [Onfi] 20 mg tablet 20 mg PO BID Qty: 60 5RF prednisone 20 mg tablet 20 mg PO DAILY Qty: 2 0RF meloxicam 15 mg tablet 15 mg PO DAILY Qty: 15 0RF Discharge Orders: Discharge ED (Routine); Ordered 09/21/22 Ordered By: Nela Uribe Referrals: Jerry Velazquez CARPET SEWING MACHINE OPERATOR [Primary Care Provider] - 1-3 days Discharge Diet: Advance as tolerated Discharge Activity: Resume usual activity Patient Instructions: Chest Wall Pain (ED) Coding Level of Care Code ED Network Intern for Doroteo Fwd Exam Comprehensive
[2022-09-21] MEDS: HYDROcodone-acetaminophen 7.5-325 mg Tablet 1 TAB PO (01:59)
[2022-09-21 02:34] VITALS: RESP 16
== END 2022-09-21 02:30 | disposition home or self-care (01) ==
PROVIDERS: Emergency Provider Emergency Medicine; PCP Clinical Nurse Specialist Adult Health
DX: R07.89 Other chest pain (principal)
CPT/HCPCS: 71045; 93005; 99284

== ENCOUNTER → 2022-09-22 11:40 | Outpatient (BNVA) | payer MEDICARE, MEDICAID, SELFPAY | PROVIDERS: PCP Clinical Nurse Specialist Adult Health; Visit Provider Nurse Practitioner Women's Health | DX: N89.8 Other specified noninflammatory disorders of vagina (principal) | CPT/HCPCS: 87491; 87591; 87661 ==

== ENCOUNTER 2022-10-27 08:39 | Emergency (ER) | payer MEDICARE, MEDICAID, SELFPAY ==
[2022-10-27] VITALS (21 sets, daily range): BP systolic 167; BP diastolic 105; PULSE 93–100; RESP 22–42; TEMP 36.4; O2SAT 98–99
--- NOTE | 2022-10-27 08:53 | XR_ITS ---
WS: [id number] Portable AP upright chest, 10/27/2022 Clinical Data: dyspnea/cough Comparison: Chest, 09/21/2022 Findings: There is patchy opacity at the right cardiophrenic angle which may represent atelectasis an d/or minimal pneumonia. No nodules, masses or effusions are seen. The heart is normal. The pulmonary vascularity is not increased. No pneumothorax is seen. There are monitor leads on the chest wall. XR/XR chest 1V portable 25250 Impression: Minimal patchy opacity in right lower lobe which may represent atelectasis and/ or minimal pneumonia.
--- NOTE | 2022-10-27 09:03 | ECG_ITS ---
[facility] Test Date: 2022-10-27 Pat Name: Leydi Souza Department: Room: Gender: Female Mold Setter: : 1975 Requested By: Emir Renee Order Number: [id number] Izzy MD: Asad Mcfadden M.D. Measurements Intervals [place] Rate: 97 P: 49 [place]: 164 QRS: 93 QRSD: 90 T: 42 QT: 357 QTc: 455 Interpretive Statements SINUS RHYTHM BORDERLINE RIGHT AXIS DEVIATION [QRS AXIS > 90] Compared to ECG 09/21/2022 02:01:19 Myocardial infarct finding no longer present Electronically Signed On 10-27-2022 20:25:28 DETECTIVE HOMICIDE SQUAD by Asad Mcfadden M.D. [email or web address]
--- NOTE | 2022-10-27 09:06 | W.ED.SOB ---
HPI - SOB/Dyspnea General: Chief Complaint: Shortness of Breath/Dyspnea Stated Complaint: SOB Time Seen by Provider: 10/27/22 08:50 Source: patient Mode of arrival: ambulatory History of Present Illness: HPI Narrative: 46-year-old female presents to the emergency room with complaints of shortness of breath she has been going on for a week she states lying flat makes it worse she cannot nonproductive cough she relates it to a previous had a series of symptoms she had an she was told she had a bronchitis feels like she has been wheezing quite a bit. No vomiting or diarrhea no fever no abdominal or chest pain. MD elicited complaint: shortness of breath and cough Onset (ago): day(s) Timing: constant Severity: mild Exacerbating factors: nothing Relieving factors: nothing Associated symptoms: Reports chest congestion; Deny abdominal pain, chest pain, cough, diaphoresis, dizziness, extremity pain, fever(s), hemoptysis, lightheadedness, myalgias, nausea, orthopnea, palpitations, paresthesias, polydipsia, polyuria, rash, syncope or vomiting Treatment prior to arrival: none Review of Systems Const: Denies: fever(s) or diaphoresis Card: Denies: chest pain, palpitations, lightheadedness, syncope or orthopnea Resp: Reports: chest congestion; Denies: hemoptysis GI: Denies: abdominal pain, nausea or vomiting Musc: Denies: extremity pain Neuro: Denies: dizziness Endo: Denies: polyuria or polydipsia PFSH ED PFSH: Medical History Borderline personality disorder Chronic migraine without aura, intractable, with status migrainosus Loss of hair 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 Performed by Dr Rivas at [facility] in [place], [place]. Family History Grandmother Stroke maternal Family/Other Diabetes maternal great aunt Denies family history of Colon cancer Ovarian cancer Heart disease Hypercholesteremia Breast cancer Hypertension Uterine cancer Thyroid disease Physical Exam Const: COMMON NORMALS: no acute distress GENERAL APPEARANCE: cooperative and comfortable ORIENTATION/CONSCIOUSNESS: Yes awake, Yes oriented to person, Yes oriented to place and Yes oriented to time HENMT: COMMON NORMALS: normocephalic, atraumatic, hearing grossly normal bilaterally, external ears normal, EAC's normal, TM's normal bilaterally, Normal nasal mucous membranes and turbinates present, moist oral mucous membranes and oropharynx normal HEAD & SCALP: normocephalic and atraumatic NOSE: Normal nasal mucous membranes and turbinates present EXTERNAL EAR: Yes external ears normal EXTERNAL AUDITORY CANAL: EAC's normal TYMPANIC MEMBRANE: TM's normal bilaterally Resp: COMMON NORMALS: normal respiratory effort, No retractions, No use of accessory muscles and clear to auscultation bilaterally AUSCULTATION: clear to auscultation bilaterally Cardio: COMMON NORMALS: regular rate, regular rhythm and No murmurs present (Cardio) RATE: regular rate RHYTHM: regular rhythm GI: COMMON NORMALS: Soft to palpation and No hepatosplenomegaly present AUSCULTATION: Yes normoactive bowel sounds PALPATION: Yes Soft to palpation, No Tenderness to palpation present (GI), No Guarding due to palpation present (GI) and Yes No hepatosplenomegaly present Extremity: COMMON NORMALS: normal to inspection, capillary refill normal, no clubbing, cyanosis or edema, no calf tenderness and no pedal edema Neuro: SENSORIUM/ORIENTATION: Yes oriented to person, Yes oriented to place and Yes oriented to time Skin: COMMON NORMALS: no rashes or lesions noted GENERAL SKIN EXAM: no rashes or lesions noted Course Vital Signs: Vital signs: Vital Signs Temperature 97.6 F 10/27/22 08:58 Pulse Rate 93 10/27/22 10:30 Respiratory Rate 33 H 10/27/22 09:40 Blood Pressure 167/105 10/27/22 10:35 Pulse Oximetry 99 10/27/22 10:30 MDM - SOB/Dyspnea Medical Decision Making Patient hyperventilating when she first arrived ABG verifies. Chest x-ray shows questionable area of pneumonia on the right lower lobe exam is unremarkable. Since she is complaining of symptoms would not treat with a course of Levaquin however follow-up with her primary care return if worsens. Medical Records I reviewed the patient's medical records. Lab Data I reviewed the patient's lab results. 10/27/22 09:03 10/27/22 09:03 Labs/Radiology: Radiology Impressions Chest X-Ray 10/27/22 08:53 Impression: Minimal patchy opacity in right lower lobe which may represent atelectasis and/or minimal pneumonia. Laboratory Results WBC 9.4 10^3/uL (4.0-10.0) 10/27/22 09:03 RBC 4.14 10^6/uL (4.1-5.3) 10/27/22 09:03 Hgb 12.4 g/dL (11.5-15.3) 10/27/22 09:03 Hct 40.1 % (37.0-47.0) 10/27/22 09:03 MCV 96.9 fl (81-99) 10/27/22 09:03 MCH 30.0 pg (28.0-34.0) 10/27/22 09:03 MCHC 30.9 g/dL (30.0-36.0) 10/27/22 09:03 RDW 11.7 % (12.1-15.1) L 10/27/22 09:03 Plt Count 309 10^3/cmm (130-400) 10/27/22 09:03 MPV 10.0 fL (7.4-10.4) 10/27/22 09:03 Neut % (Auto) 63.5 % 10/27/22 09:03 Lymph % (Auto) 30.2 % 10/27/22 09:03 [place] % (Auto) 3.7 % 10/27/22 09:03 Eos % (Auto) 1.8 % 10/27/22 09:03 Baso % (Auto) 0.5 % 10/27/22 09:03 Neut # (Auto) 5.93 10^3/uL (1.8-7.7) 10/27/22 09:03 Lymph # (Auto) 2.8 10^3/uL (0.8-4.8) 10/27/22 09:03 [place] # (Auto) 0.4 10^3/uL (0.2-0.9) 10/27/22 09:03 Eos # (Auto) 0.2 10^3/uL (0.0-0.8) 10/27/22 09:03 Baso # (Auto) 0.1 10^3/uL (0.0-0.1) 10/27/22 09:03 Nucleated RBC % (auto) 0 % 10/27/22 09:03 Nucleated RBCs # 0.0 /100WBC 10/27/22 09:03 Specimen Type Arterial 10/27/22 09:14 Sample Site Radial, left 10/27/22 09:14 ABG pH 7.52 (7.35-7.45) H 10/27/22 09:14 ABG pCO2 27.3 mmHg (35-45) L 10/27/22 09:14 ABG pO2 99.6 mmHg (80.0-100.0) 10/27/22 09:14 ABG HCO3 26.0 mmol/L (22-26) 10/27/22 09:14 ABG O2 Saturation 97.9 10/27/22 09:14 ABG Base Excess 5.0 mmol/L (-2.0-2.0) H 10/27/22 09:14 Brian Test Pos 10/27/22 09:14 A-a O2 Gradient 1.7 mmHg (5-10) L 10/27/22 09:14 Hematocrit 38.1 % (37-47) 10/27/22 09:14 Hgb O2 Saturation 97.4 % (95-100) 10/27/22 09:14 Carboxyhemoglobin < 1.0 %THgb (0.4-20.1) 10/27/22 09:14 Methemoglobin 0.1 % (0.4-1.5) L 10/27/22 09:14 Total Hemoglobin 12.4 g/dL (12-16) 10/27/22 09:14 Sodium 139.0 mmol/L (131-143) 10/27/22 09:14 Potassium 3.3 mmol/L (3.5-5.0) L 10/27/22 09:14 Glucose 91.0 mg/dL (70-115) 10/27/22 09:14 Ionized Calcium 1.2 mmol/L (1.1-1.4) 10/27/22 09:14 O2 Delivery Device Room air 10/27/22 09:14 FiO2 21.0 % 10/27/22 09:14 Utilization Review Nurse ID Cak 10/27/22 09:14 Sodium 138 mmol/L (136-145) 10/27/22 09:03 Potassium 3.6 mmol/L (3.5-5.1) 10/27/22 09:03 Chloride 102 mmol/L (98-107) 10/27/22 09:03 Carbon Dioxide 23 mmol/L (22-29) 10/27/22 09:03 Anion Gap 16.6 (5-19) 10/27/22 09:03 BUN 7 mg/dL (6-20) 10/27/22 09:03 Creatinine 0.7 mg/dL (0.5-0.9) 10/27/22 09:03 GFR Calculation 90.5 mL/min (90-130) 10/27/22 09:03 Glucose 94 mg/dL (65-115) 10/27/22 09:03 Calculated Osmolality 284 mOsm/kg (285-295) L 10/27/22 09:03 Calcium 9.7 mg/dL (8.5-10.5) 10/27/22 09:03 Total Bilirubin 0.2 mg/dL (0.15-1.2) 10/27/22 09:03 AST 25 U/L (0-32) 10/27/22 09:03 ALT 23 U/L (0-33) 10/27/22 09:03 Alkaline Phosphatase 97 U/L (35-105) 10/27/22 09:03 Total Protein 6.4 g/dL (6.6-8.7) L 10/27/22 09:03 Albumin 3.5 g/dL (3.5-5.2) 10/27/22 09:03 Globulin 2.9 g/dL (1.3-4.6) 10/27/22 09:03 Discharge Plan Discharge Patient Disposition: Home Clinical Impression: Community acquired pneumonia, Hyperventilation Condition: Stable Prescriptions: New albuterol sulfate 90 mcg/actuation HFA aerosol inhaler 2 inh INHALATION Q4H PRN (Reason: shortness of breath or wheezing) Qty: 18 0RF levofloxacin 750 mg tablet 750 mg PO DAILY 7 Days Qty: 7 0RF No Action norgestimate-ethinyl estradiol [Sprintec (28)] 0.25-35 mg-mcg tablet 1 tab PO DAILY Qty: 84 3RF Rx Instructions: switch to a new pack after taking the third week, do not take last weeks pills sertraline 100 mg tablet 100 mg PO DAILY Qty: 30 11RF diazepam 5 mg tablet 5 mg PO BID Qty: 60 5RF nystatin-triamcinolone 100,000-0.1 unit/gram-% ointment 1 applic topical BID PRN (Reason: VULVITIS) Qty: 15 0RF Rx Instructions: USE BID X 5 DAYS INITIALLY, THEN PRN albuterol sulfate [Ventolin HFA] 90 mcg/actuation HFA aerosol inhaler 1 inh inhalation Q4H PRN (Reason: bronchospasm) Qty: 8.5 0RF clobazam [Onfi] 20 mg tablet 20 mg PO BID Qty: 60 5RF nortriptyline 75 mg capsule 75 mg PO BEDTIME Rx Instructions: Take with 50mg capsule for total nightly dose of 125mg. nortriptyline 50 mg capsule 50 mg PO BEDTIME Rx Instructions: Take with 75mg capsule for total daily dose of 125mg. Abilify 2 mg tablet 2 mg PO BEDTIME Discharge Orders: Discharge ED (Routine); Ordered 10/27/22 Ordered By: Emir Davila Referrals: Jerry Velazquez, CROWN AND BRIDGE TECHNICIAN [Primary Care Provider] - Discharge Diet: Usual diet Discharge Activity: Resume usual activity Patient Instructions: Opioid Safety, Pain Management Activity Restrictions/Additional Instructions: You were seen today for cough and shortness of breath. Blood gas showed that when you first arrived you are hyperventilating. Chest x-ray there is a questionable however pneumonia at the base of the lung your CBC is normal. We will start you on Levaquin 750 mg once a day for 7 days and use albuterol as needed follow-up with your primary care doctor if you are not improving. Coding Level of Care Code ED Generator Switchboard Operator for Doroteo Brumfield
[2022-10-27 09:20] LABS: Basophils # 0.1 10^3/uL (0.0-0.1); Basophils % 0.5 %; Eosinophils # 0.2 10^3/uL (0.0-0.8); Eosinophils % 1.8 %; Hematocrit 40.1 % (37.0-47.0); Hemoglobin 12.4 g/dL (11.5-15.3); Lymphocytes # 2.8 10^3/uL (0.8-4.8); Lymphocytes % 30.2 %; Mean Corpuscular HGB Conc 30.9 g/dL (30.0-36.0); Mean Corpuscular Volume 96.9 fl (81-99); Monocytes # 0.4 10^3/uL (0.2-0.9); Monocytes % 3.7 %; Neutrophils # 5.93 10^3/uL (1.8-7.7); Neutrophils % 63.5 %; Nucleated Red Blood Cells % 0 %; Platelet Count 309 10^3/cmm (130-400); Red Blood Count 4.14 10^6/uL (4.1-5.3); Red Cell Distribution Width 11.7 % (12.1-15.1); White Blood Count 9.4 10^3/uL (4.0-10.0)
[2022-10-27 09:25] LABS: ABG PH Result 7.52 (7.35-7.45); Blood Gas Allen Test Pos; Blood Gas Operator Identificat CAK; Blood Gas Sample Site Radial, left; Blood Gas Sample Type Arterial; Ionized Calcium Level - ABG 1.2 mmol/L (1.1-1.4); Oxygen Device ROOM AIR; Potassium Level - ABG 3.3 mmol/L (3.5-5.0)
[2022-10-27 09:31] LABS: ABG PCO2 27.3 mmHg (35-45); Alveolar-Arterial Oxygen Gradi 1.7 mmHg (5-10); Arterial Blood Gas Hematocrit 38.1 % (37-47); Carboxyhemoglobin < 1.0 %THgb (0.4-20.1); HGB O2 Sat 97.4 % (95-100); Methemoglobin 0.1 % (0.4-1.5); Oxygen Saturation ABG 97.9; PO2 ABG 99.6 mmHg (80.0-100.0); Total Hemoglobin 12.4 g/dL (12-16)
[2022-10-27 09:40] LABS: Alanine Aminotransferase 23 U/L (0-33); Albumin Level 3.5 g/dL (3.5-5.2); Alkaline Phosphatase 97 U/L (35-105); Anion Gap 16.6 (5-19); Aspartate Amino Transferase 25 U/L (0-32); Blood Urea Nitrogen 7 mg/dL (6-20); Calcium 9.7 mg/dL (8.5-10.5); Carbon Dioxide 23 mmol/L (22-29); Chloride 102 mmol/L (98-107); Globulin 2.9 g/dL (1.3-4.6); Glomerular Filtration Rate 90.5 mL/min (90-130); Glucose 94 mg/dL (65-115); Osmolality Calculated 284 mOsm/kg (285-295); Potassium 3.6 mmol/L (3.5-5.1); Sodium 138 mmol/L (136-145); Total Bilirubin 0.2 mg/dL (0.15-1.2); Total Protein 6.4 g/dL (6.6-8.7)
== END 2022-10-27 10:41 | disposition home or self-care (01) ==
PROVIDERS: Emergency Provider Family Medicine; PCP Clinical Nurse Specialist Adult Health
DX: J18.9 Pneumonia, unspecified organism (principal); R06.4 Hyperventilation
CPT/HCPCS: 36600; 71045; 80051; 80053; 82330; 82805; 85025; 93005; 99285

== ENCOUNTER 2022-11-05 06:41 | Emergency (ER) | payer MEDICARE, MEDICAID, SELFPAY ==
[2022-11-05 06:47] VITALS: BP 127/83; PULSE 124; RESP 20; TEMP 36.6; O2SAT 97; BMI 36.6
--- NOTE | 2022-11-05 07:03 | ED_ITS ---
HPI - Headache General: Chief Complaint: Headache Stated Complaint: migraine Time Seen by Provider: 11/05/22 06:48 Source: patient Mode of arrival: ambulatory History of Present Illness: 46-year-old female presents emergency room c omplaining headache and left-sided neck pain no recent trauma. She is not on any anticoagulants. She is hyperventilating at the time of presentation. No other localizing neuro symptoms no difficulty speech swallowing or vision. She localizes her pain to the posterior cervical muscles of the neck on the left side they are worsened with palpation and movement. She has not noted any swollen lymph nodes. MD elicited complaint: headache Onset (ago): day(s) Onset description: gradually Location: left and occipital Severity: moderate Quality & Timing: aching Exacerbating factors: none, light and noise Relieving factors: nothing Associated symptoms: Deny chest pain, confusion, cough, diaphoresis, eye pain, eye redness, fever(s), lightheadedness, loss of vision, malaise, nausea, neck stiffness, numbness, paresthesias, photophobia, pre-syncope, rash, seizures, short of breath, sound sensitivity, syncope, vomiting or weakness Treatments prior to arrival: none Review of Systems Const: Denies: fever(s), chills, malaise or diaphoresis ENMT: Denies: throat pain, ear or mastoid pain, nasal discharge or nasal congestion Card: Denies: chest pain, lightheadedness, syncope or pre-syncope Resp: Denies: dyspnea, productive cough or non-productive cough GI: Reports: abdominal pain; Denies: nausea or vomiting : Denies: flank pain, difficulty voiding, dysuria, urinary frequency or urinary urgency Musc: Reports: neck pain Skin/Breast: Denies: rash Neuro: Denies: confusion PFSH ED PFSH: Medical History Borderline personality disorder Chronic migraine without aura, intractable, with status migrainosus Loss of hair 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 Performed by Dr Rivas at [facility] in [place], [place]. Family History Grandmother Stroke maternal Family/Other Diabetes maternal great aunt Denies family history of Colon cancer Ovarian cancer Heart disease Hypercholesteremia Breast cancer Hypertension Uterine cancer Thyroid disease Physical Exam Const: GENERAL APPEARANCE: cooperative and comfortable ORIENTATION/CONSCIOUSNESS: Yes awake, Yes oriented to person, Yes oriented to place and Yes oriented to time HENMT: COMMON NORMALS: normocephalic, atraumatic and hearing grossly normal bilaterally HEAD & SCALP: normocephalic and atraumatic Eye: COMMON NORMALS: Equal, round and reactive pupils present, EOMs intact bilaterally, conjunctivae normal and no scleral icterus CONJUNCTIVA: Yes conjunctivae normal PUPIL: Yes Equal, round and reactive pupils present DIRECT OPHTHALMOSCOPY: No photophobia Neck/C-Spine: COMMON NORMALS: full ROM, no lymphadenopathy, supple and no JVD Lymph: LYMPHATIC: no lymphadenopathy noted and no lymphedema noted Resp: COMMON NORMALS: normal respiratory effort, No retractions, No use of accessory muscles and clear to auscultation bilaterally AUSCULTATION: clear to auscultation bilaterally Cardio: COMMON NORMALS: no JVD, regular rate, regular rhythm and No murmurs present (Cardio) RATE: regular rate RHYTHM: regular rhythm GI: COMMON NORMALS: Soft to palpation and No hepatosplenomegaly present AUSCULTATION: Yes normoactive bowel sounds PALPATION: Yes Soft to palpation, No Tenderness to palpation present (GI), No Guarding due to palpation present (GI) and Yes No hepatosplenomegaly present Extremity: COMMON NORMALS: normal to inspection, capillary refill normal, no clubbing, cyanosis or edema, no calf tenderness and no pedal edema Neuro: SENSORIUM/ORIENTATION: Yes oriented to person, Yes oriented to place and Yes oriented to time Skin: COMMON NORMALS: no rashes or lesions noted GENERAL SKIN EXAM: no rashes or lesions noted Course Vital Signs: Vital signs: Vital Signs Temperature 97.9 F 11/05/22 06:47 Pulse Rate 107 H 11/05/22 07:28 Respiratory Rate 20 H 11/05/22 06:47 Blood Pressure 160/98 11/05/22 09:25 Pulse Oximetry 93 11/05/22 09:17 Oxygen Delivery Me thod 11/05/22 09:17 MDM - Headache Medical Decision Making Patient improved with anxiety controlled by Haldol. We will try to give her Ativan she said she was allergic to it. We checked at [facility] she was a patient's average is no shortness of time she has not been seen for quite some time and evidently is on their walk-in only list. Her symptoms have resolved now that her anxiety is better we are going to discharge her from here and going to have her taken to the crisis stabilization unit and see if they can help her find some resources maybe adjust some of her anxiety medications to prevent recurrent ER visits that we have been seeing. Medical Records I reviewed the patient's medical records. Lab Data I reviewed the patient's lab results. Discharge Plan Discharge Patient Disposition: Home Clinical Impression: Headache, Hyperventilation, Anxiety Condition: Stable Prescriptions: No Action norgestimate-ethinyl estradiol [Sprintec (28)] 0.25-35 mg-mcg tablet 1 tab PO DAILY Qty: 84 3RF Rx Instructions: switch to a new pack after taking the third week, do not take last weeks pills sertraline 100 mg tablet 100 mg PO DAILY Qty: 30 11RF diazepam 5 mg tablet 5 mg PO BID Qty: 60 5RF nystatin-triamcinolone 100,000-0.1 unit/gram-% ointment 1 applic topical BID PRN (Reason: VULVITIS) Qty: 15 0RF Rx Instructions: USE BID X 5 DAYS INITIALLY, THEN PRN albuterol sulfate [Ventolin HFA] 90 mcg/actuation HFA aerosol inhaler 1 inh inhalation Q4H PRN (Reason: bronchospasm) Qty: 8.5 0RF clobazam [Onfi] 20 mg tablet 20 mg PO BID Qty: 60 5RF nortriptyline 75 mg capsule 75 mg PO BEDTIME Rx Instructions: Take with 50mg capsule for total nightly dose of 125mg. nortriptyline 50 mg capsule 50 mg PO BEDTIME Rx Instructions: Take with 75mg capsule for total daily dose of 125mg. Abilify 2 mg tablet 2 mg PO BEDTIME albuterol sulfate 90 mcg/actuation HFA aerosol inhaler 2 inh INHALATION Q4H PRN (Reason: shortness of breath or wheezing) Qty: 18 0RF Discharge Orders: Discharge ED (Routine); Ordered 11/05/22 Ordered By: Emir Davila Referrals: Jerry Velazquez, VOCATIONAL REHABILITATION SUPERVISOR [Primary Care Provider] - Discharge Diet: Usual diet Patient Instructions: Opioid Safety, Pain Management Activity Restrictions/Additional Instructions: You had several visits to the ER recently much of your physical symptoms at the time you presented seem to be driven by anxiety. I think he would benefit from intervention at the crisis stabilization unit. You were given medications here to alleviate your anxiety which have helped however in the future it would be best to establish better treatment regimen and coping patterns to avoid anxiety leading to further ER visits. You will be discharged from the emergency room and brought to the crisis stabilization unit will they will try to assist you with this. Coding Level of Care Code ED Communications And Signals Supervisor for Doroteo Brumfield Exam Comprehensive
[2022-11-05] MEDS: sodium chloride 0.9% 1,000 ML 999 ML IV (07:17)
[2022-11-05] MEDS: orphenadrine 30 mg/mL Inj 2 mL 60 MG IVP (07:18)
[2022-11-05] MEDS: ketorolac 30 mg/mL INJ IVP (07:18)
[2022-11-05] MEDS: promethazine 25 mg/mL SDV 1 mL IM (07:19)
[2022-11-05 07:28] VITALS: BP 176/96; PULSE 107; O2SAT 98
[2022-11-05 08:25] VITALS: BP 176/96; O2SAT 100
[2022-11-05] MEDS: haloperidol inj 5 mg/mL INJ 1 mL 2 MG IM (08:56)
[2022-11-05 09:17] VITALS: BP 180/106; O2SAT 93
[2022-11-05 09:25] VITALS: BP 160/98
== END 2022-11-05 10:29 | disposition home or self-care (01) ==
PROVIDERS: Emergency Provider Family Medicine; PCP Clinical Nurse Specialist Adult Health
DX: R51.9 Headache, unspecified (principal); F41.9 Anxiety disorder, unspecified; R06.4 Hyperventilation
CPT/HCPCS: 96361; 96372; 96374; 96375; 99284; J1630; J1885; J2360; J2550; J7030

== ENCOUNTER → 2023-01-20 07:42 | Outpatient (BNVA) | payer MEDICARE, MEDICAID, SELFPAY | PROVIDERS: PCP Clinical Nurse Specialist Adult Health; Visit Provider Specialist | DX: G43.711 Chronic migraine without aura, intractable, with status migrainosus (principal); M54.81 Occipital neuralgia; L97.318 Non-pressure chronic ulcer of right ankle with other specified severity; L97.328 Non-pressure chronic ulcer of left ankle with other specified severity | CPT/HCPCS: 64405; 64450; 99214; J1030; J3490 ==

== ENCOUNTER 2023-01-22 04:54 | Emergency (ER) | payer MEDICARE, MEDICAID, SELFPAY ==
--- NOTE | 2023-01-22 04:57 | ECG_ITS ---
[facility] Test Date: 2023-01-22 Pat Name: Leydi Souza Department: Room: Gender: Female Recruiting And Selection Consultant: : 1975 Requested By: Nela Uribe Order Number: [id number] Izzy MD: Zackary Johnson M.D. Measurements Intervals [place] Rate: 79 P: 59 IA: 148 QRS: 45 QRSD: 92 T: 40 QT: 357 QTc: 410 Interpretive Statements SINUS RHYTHM Compared to ECG 10/27/2022 09:03:16 No significant changes Electronically Signed On 01-22-2023 15:53:43 CDT by Zackary Johnson M.D. [id number]
--- NOTE | 2023-01-22 04:57 | XRR_ITS ---
PROCEDURE INFORMATION: Exam: XR Chest Exam date and time: 01/22/2023 5:20 AM Age: 47 years old Clinical indication: Left-sided; Patient HX: C/O left sided chest pain. Hypertensive. ; Additional info: Cp TECHNIQUE: Imaging protocol: Radiologic exam of the chest. Views: 1 view. COMPARISON: CR XR chest 1V portable [id number] 09/21/2022 3:01 AM FINDINGS: Lungs: Unremarkable. No consolidation. Pleural spaces: Unremarkable. No pleural effusion. No pneumothorax. Heart/Mediastinum: Unremarkable. No cardiomegaly. Bones/joints: Unremarkable. XR/XR chest 1V portable [id number] IMPRESSION: No acute findings.
[2023-01-22 05:11] VITALS: BP 164/106; PULSE 100; RESP 20; TEMP 36.7; O2SAT 98; BMI 37.1
--- NOTE | 2023-01-22 05:16 | W.ED.CHESTPA ---
HPI - Chest Pain General: Chief Complaint: Chest Pain Stated Complaint: Pain Left Part of Chest\Had two Weeks Time Seen by Provider: 01/22/23 04:58 Source: patient Mode of arrival: ambulatory Limitations: no limitations History of Present Illness: 47-year-old female states she been having chest pain for last 2 weeks states been a sharp needlelike pain last seconds states has been intermittent nature she states she had more tonight than typical so she got concerned she does have a history of anxiety she denies any shortness of breath she denies any worsening proving factors denies any pain currently. Associated symptoms: Deny abdominal pain, dyspnea, fever(s), nausea or vomiting Review of Systems Const: Denies: fever(s), chills, body aches or change in appetite Eyes: Denies: blurry vision or eye discomfort ENMT: Denies: throat pain or dental pain Card: Reports: chest pain Resp: Denies: dyspnea GI: Denies: abdominal pain, nausea, vomiting or diarrhea : Denies: dysuria Musc: Denies: neck pain or back pain Skin/Breast: Denies: rash Neuro: Denies: headache(s) Psych: Denies: depression Milind/Lymph: Denies: easy bruising All/Imm: Denies: urticaria PFSH ED PFSH: Medical History Borderline personality disorder Chronic migraine without aura, intractable, with status migrainosus Loss of hair 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 [place] [facility] [place]. Family History Grandmother Stroke maternal Family/Other Diabetes maternal great aunt Denies family history of Colon cancer Ovarian cancer Heart disease Hypercholesteremia Breast cancer Hypertension Uterine cancer Thyroid disease Physical Exam Const: COMMON NORMALS: no acute distress, patient oriented x3 and healthy appearing HENMT: COMMON NORMALS: normocephalic and atraumatic HEAD & SCALP: normocephalic and atraumatic Eye: COMMON NORMALS: Equal, round and reactive pupils present and EOMs intact bilaterally PUPIL: Yes Equal, round and reactive pupils present Neck/C-Spine: COMMON NORMALS: full ROM and supple Chest: COMMONS NORMALS: normal inspection of the chest and normal palpation of entire chest wall Resp: COMMON NORMALS: normal respiratory effort, No retractions, No use of accessory muscles and clear to auscultation bilaterally AUSCULTATION: clear to auscultation bilaterally Cardio: COMMON NORMALS: regular rate, regular rhythm and No murmurs present (Cardio) RATE: regular rate RHYTHM: regular rhythm GI: COMMON NORMALS: Normal to inspection, nondistended, normoactive bowel sounds present, Soft to palpation, non-tender and no masses PALPATION: Yes Soft to palpation Extremity: COMMON NORMALS: normal to inspection and full ROM Neuro: COMMON NORMALS: patient oriented x3, moves all extremities and no focal motor deficits Psych: COMMON NORMALS: mental status grossly normal, Normal thought process present and cooperative THOUGHT PROCESS: Normal thought process present Skin: COMMON NORMALS: no rashes or lesions noted and no wounds GENERAL SKIN EXAM: no rashes or lesions noted Course Vital Signs: Vital signs: Vital Signs Temperature 98.0 F 01/22/23 05:11 Pulse Rate 98 01/22/23 05:33 Respiratory Rate 15 01/22/23 05:33 Blood Pressure 165/101 01/22/23 05:33 Pulse Oximetry 98 01/22/23 05:33 Oxygen Delivery Me thod 01/22/23 05:11 [facility] - Chest Pain Medical Decision Making Patient presents for chest pains atypical in nature EKG x-ray are all normal she is well-appearing here with no pain her pains been on for 2 weeks her troponins normal do not believe she needs a 2-hour Trope she is to follow-up with her PCP Lab Data 01/22/23 05:22 01/22/23 05:22 Radiology Impressions Chest X-Ray 01/22/23 04:57 IMPRESSION: No acute findings. Laboratory Results WBC 9.5 10^3/uL (4.0-10.0) 01/22/23 05:22 RBC 4.44 10^6/uL (4.1-5.3) 01/22/23 05:22 Hgb 13.4 g/dL (11.5-15.3) 01/22/23 05:22 Hct 41.5 % (37.0-47.0) 01/22/23 05:22 MCV 93.5 fl (81-99) 01/22/23 05:22 MCH 30.2 pg (28.0-34.0) 01/22/23 05:22 MCHC 32.3 g/dL (30.0-36.0) 01/22/23 05:22 RDW 12.3 % (12.1-15.1) 01/22/23 05:22 Plt Count 313 10^3/cmm (130-400) 01/22/23 05:22 MPV 10.3 fL (7.4-10.4) 01/22/23 05:22 Neut % (Auto) 60.5 % 01/22/23 05:22 Lymph % (Auto) 31.2 % 01/22/23 05:22 [place] % (Auto) 5.5 % 01/22/23 05:22 Eos % (Auto) 2.1 % 01/22/23 05:22 Baso % (Auto) 0.4 % 01/22/23 05:22 Neut # (Auto) 5.72 10^3/uL (1.8-7.7) 01/22/23 05:22 Lymph # (Auto) 3.0 10^3/uL (0.8-4.8) 01/22/23 05:22 [place] # (Auto) 0.5 10^3/uL (0.2-0.9) 01/22/23 05:22 Eos # (Auto) 0.2 10^3/uL (0.0-0.8) 01/22/23 05:22 Baso # (Auto) 0.0 10^3/uL (0.0-0.1) 01/22/23 05:22 Nucleated RBC % (auto) 0 % 01/22/23 05:22 Nucleated RBCs # 0.0 /100WBC 01/22/23 05:22 PT 13.40 SECONDS (12.1-14.9) 01/22/23 05:22 INR 0.99 (0.8-1.2) 01/22/23 05:22 Sodium 138 mmol/L (136-145) 01/22/23 05:22 Potassium 3.3 mmol/L (3.5-5.1) L 01/22/23 05:22 Chloride 103 mmol/L (98-107) 01/22/23 05:22 Carbon Dioxide 21 mmol/L (22-29) L 01/22/23 05:22 Anion Gap 17.3 (5-19) 01/22/23 05:22 BUN 21 mg/dL (6-20) H 01/22/23 05:22 Creatinine 0.7 mg/dL (0.5-0.9) 01/22/23 05:22 GFR Calculation 90.1 mL/min (90-130) 01/22/23 05:22 Glucose 92 mg/dL (65-115) 01/22/23 05:22 Calculated Osmolality 289 mOsm/kg (285-295) 01/22/23 05:22 Calcium 10.1 mg/dL (8.5-10.5) 01/22/23 05:22 Total Bilirubin 0.2 mg/dL (0.15-1.2) 01/22/23 05:22 AST 24 U/L (0-32) 01/22/23 05:22 ALT 21 U/L (0-33) 01/22/23 05:22 Alkaline Phosphatase 73 U/L (35-105) 01/22/23 05:22 Troponin T Baseline 6 ng/L (0-10) 01/22/23 05:22 Total Protein 7.1 g/dL (6.6-8.7) 01/22/23 05:22 Albumin 3.9 g/dL (3.5-5.2) 01/22/23 05:22 Globulin 3.2 g/dL (1.3-4.6) 01/22/23 05:22 Lipase 35 U/L (13-60) 01/22/23 05:22 EKG Data EKG 1: I personally reviewed and interpreted this EKG as follows: EKG interpretation date: 01/22/23 EKG interpretation time: 05:17 Interpretation: nsr hr [address] or t wave abnormalities qrs 92 qtc 392 Discharge Plan Discharge Patient Disposition: Home Clinical Impression: Chest pain Condition: Stable Prescriptions: No Action sertraline 100 mg tablet 100 mg PO DAILY Qty: 30 11RF diazepam 5 mg tablet 5 mg PO BID Qty: 60 5RF nystatin-triamcinolone 100,000-0.1 unit/gram-% ointment 1 applic topical BID PRN (Reason: VULVITIS) Qty: 15 0RF Rx Instructions: USE BID X 5 DAYS INITIALLY, THEN PRN amoxicillin-pot clavulanate [Augmentin] 500-125 mg tablet 1 tab PO TID 7 Days Qty: 21 0RF albuterol sulfate [Ventolin HFA] 90 mcg/actuation HFA aerosol inhaler 1 inh inhalation Q4H PRN (Reason: bronchospasm) Qty: 8.5 0RF clobazam [Onfi] 20 mg tablet 20 mg PO BID Qty: 60 5RF norgestimate-ethinyl estradiol [Sprintec (28)] 0.25-35 mg-mcg tablet See Rx Instructions .ROUTE .COMPLEX Qty: 84 2RF Dose Instruction: TAKE 1 TABLET BY MOUTH ONCE DAILY SWITCH TO A NEW PACK AFTER TAKING THE THIRD WEEK. DO NOT TAKE LAST WEEKS PILLS Rx Instructions: TAKE 1 TABLET BY MOUTH ONCE DAILY SWITCH TO A NEW PACK AFTER TAKING THE THIRD WEEK. DO NOT TAKE LAST WEEKS PILLS nortriptyline 75 mg capsule 75 mg PO BEDTIME Rx Instructions: Take with 50mg capsule for total nightly dose of 125mg. nortriptyline 50 mg capsule 50 mg PO BEDTIME Rx Instructions: Take with 75mg capsule for total daily dose of 125mg. 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
[2023-01-22 05:26] VITALS: BP 173/97; PULSE 92; RESP 16; O2SAT 99
[2023-01-22 05:29] LABS: Basophils % 0.4 %; Eosinophils # 0.2 10^3/uL (0.0-0.8); Eosinophils % 2.1 %; Hematocrit 41.5 % (37.0-47.0); Hemoglobin 13.4 g/dL (11.5-15.3); Lymphocytes % 31.2 %; Mean Corpuscular HGB Conc 32.3 g/dL (30.0-36.0); Mean Corpuscular Hemoglobin 30.2 pg (28.0-34.0); Mean Corpuscular Volume 93.5 fl (81-99); Mean Platelet Volume 10.3 fL (7.4-10.4); Monocytes # 0.5 10^3/uL (0.2-0.9); Monocytes % 5.5 %; Neutrophils # 5.72 10^3/uL (1.8-7.7); Neutrophils % 60.5 %; Nucleated Red Blood Cells % 0 %; Platelet Count 313 10^3/cmm (130-400); Red Blood Count 4.44 10^6/uL (4.1-5.3); Red Cell Distribution Width 12.3 % (12.1-15.1); White Blood Count 9.5 10^3/uL (4.0-10.0)
[2023-01-22] MEDS: labetalol 5 mg/mL SDV 20mL 10 MG IVP (05:31)
[2023-01-22 05:33] VITALS: BP 165/101; PULSE 98; RESP 15; O2SAT 98
[2023-01-22 05:43] LABS: INR 0.99 (0.8-1.2)
[2023-01-22 05:49] LABS: Alanine Aminotransferase 21 U/L (0-33); Albumin Level 3.9 g/dL (3.5-5.2); Alkaline Phosphatase 73 U/L (35-105); Anion Gap 17.3 (5-19); Aspartate Amino Transferase 24 U/L (0-32); Blood Urea Nitrogen 21 mg/dL (6-20); Calcium 10.1 mg/dL (8.5-10.5); Carbon Dioxide 21 mmol/L (22-29); Chloride 103 mmol/L (98-107); Globulin 3.2 g/dL (1.3-4.6); Glomerular Filtration Rate 90.1 mL/min (90-130); Glucose 92 mg/dL (65-115); Lipase 35 U/L (13-60); Osmolality Calculated 289 mOsm/kg (285-295); Potassium 3.3 mmol/L (3.5-5.1); Sodium 138 mmol/L (136-145); Total Bilirubin 0.2 mg/dL (0.15-1.2); Total Protein 7.1 g/dL (6.6-8.7)
[2023-01-22 05:51] LABS: Troponin(5th) Baseline 6 ng/L (0-10)
[2023-01-22 06:00] VITALS: BP 141/89; PULSE 83; RESP 14; O2SAT 96
== END 2023-01-22 06:08 | disposition home or self-care (01) ==
PROVIDERS: Emergency Provider Emergency Medicine; PCP Clinical Nurse Specialist Adult Health
DX: R07.9 Chest pain, unspecified (principal)
CPT/HCPCS: 71045; 80053; 83690; 84484; 85025; 85610; 93005; 96374; 99285; J3490

== ENCOUNTER → 2023-02-18 08:59 | Outpatient (BNVA) | payer MEDICARE, MEDICAID, SELFPAY | PROVIDERS: PCP Clinical Nurse Specialist Adult Health; Visit Provider Specialist | DX: M54.81 Occipital neuralgia (principal); G40.109 Localization-related (focal) (partial) symptomatic epilepsy and epileptic syndromes with simple partial seizures, not intractable, without status epilepticus; G40.409 Other generalized epilepsy and epileptic syndromes, not intractable, without status epilepticus | CPT/HCPCS: 64405; 64450; 99212; J1030; J3490 ==

== ENCOUNTER → 2023-03-02 14:10 | Outpatient (BNVA) | payer MEDICARE, OTHER, SELFPAY | PROVIDERS: PCP Clinical Nurse Specialist Adult Health; Visit Provider Nurse Practitioner Psychiatric/Mental Health | DX: Z79.899 Other long term (current) drug therapy (principal) | CPT/HCPCS: 80048; 80061; 83036 ==

== ENCOUNTER → 2023-04-09 09:01 | Outpatient (BNVA) | payer MEDICARE, SELFPAY | PROVIDERS: PCP Clinical Nurse Specialist Adult Health; Visit Provider Nurse Practitioner Psychiatric/Mental Health | DX: Z79.899 Other long term (current) drug therapy (principal) | CPT/HCPCS: 80335 ==

== ENCOUNTER → 2023-05-20 13:45 | Outpatient (BNVA) | payer MEDICARE, MEDICAID, SELFPAY | PROVIDERS: PCP Clinical Nurse Specialist Adult Health; Visit Provider Specialist | DX: G43.711 Chronic migraine without aura, intractable, with status migrainosus (principal); M54.81 Occipital neuralgia; G40.109 Localization-related (focal) (partial) symptomatic epilepsy and epileptic syndromes with simple partial seizures, not intractable, without status epilepticus; G40.409 Other generalized epilepsy and epileptic syndromes, not intractable, without status epilepticus | CPT/HCPCS: 64405; 64450; 99213; J1030; J3490 ==

== ENCOUNTER 2023-06-26 07:36 | Emergency (ER) | payer MEDICARE, MEDICAID, SELFPAY ==
--- NOTE | 2023-06-26 07:41 | XRR_ITS ---
PROCEDURE INFORMATION: Exam: XR Chest Exam date and time: 06/26/2023 7:46 AM Age: 47 years old Clinical indication: Cough and dyspnea; Additional info: Dyspnea/cough TECHNIQUE: Imaging protocol: Radiologic exam of the chest. Views: 1 view. COMPARISON: CR XR chest 1V portable [id number] 01/22/2023 5:20 AM FINDINGS: Lungs: The lung parenchyma is clear. Pleural spaces: No pneumothorax. No pleural effusion. Heart/Mediastinum: The cardiomediastinal silhouette is within normal limits. Bones/joints: Unremarkable. XR/XR chest 1V portable [id number] IMPRESSION: No acute cardiopulmonary abnormality.
[2023-06-26 07:43] VITALS: BP 106/73; PULSE 84; RESP 16; TEMP 36.6; O2SAT 98
--- NOTE | 2023-06-26 07:44 | W.ED.WEAKNES ---
HPI - Weakness General: Chief complaint: Weakness Stated complaint: WEAKNESS; DIZZY; COVID + Time Seen by Provider: 06/26/23 07:40 Source: patient Mode of arrival: ambulatory History of Present Illness: 47-year-old female tested positive for COVID earlier this week complaining of generalized weakness this morning she nearly fell felt that she is in a pass out she got up to go to the bathroom large diarrheal stool when she went to stand up she got lightheaded and dizzy and EMS was called. She has had some nonproductive cough some anosmia headache and generalized myalgias Complaint: generalized weakness Onset (ago): minute(s) Location: generalized Migration: none Severity: mild Relieving factors: none Exacerbating factors: none Associated symptoms: Denies chest pain, chills, confusion, melena, decreased appetite, diaphoresis, dysuria, easy bruising, fever(s), headache(s), myalgias, nausea, rash, short of breath, syncope or vomiting Review of Systems Const: Denies: fever(s), chills or diaphoresis ENMT: Denies: throat pain, ear or mastoid pain, nasal discharge or nasal congestion Card: Denies: chest pain or syncope Resp: Reports: non-productive cough; Denies: dyspnea or productive cough GI: Denies: abdominal pain, nausea, vomiting or melena : Denies: dysuria, urinary frequency or urinary urgency Skin/Breast: Denies: rash or pruritus Neuro: Denies: headache(s) or confusion Milind/Lymph: Denies: easy bruising PFSH ED PFSH: Medical History Borderline personality disorder Chronic migraine without aura, intractable, with status migrainosus Essential hypertension Loss of hair MDD (major depressive disorder), recurrent episode, moderate Obesity (BMI 30.0-34.9) 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 Performed by Dr Rivas at [facility] in [place], [place]. Family History Grandmother Stroke maternal Family/Other Diabetes maternal great aunt Denies family history of Colon cancer Ovarian cancer Heart disease Hypercholesteremia Breast cancer Hypertension Uterine cancer Thyroid disease Social History Substance/Drug Use: former Physical Exam Const: GENERAL APPEARANCE: cooperative and comfortable ORIENTATION/CONSCIOUSNESS: Yes awake, Yes oriented to person, Yes oriented to place and Yes oriented to time HENMT: COMMON NORMALS: normocephalic, atraumatic and hearing grossly normal bilaterally HEAD & SCALP: normocephalic and atraumatic Resp: COMMON NORMALS: normal respiratory effort, No retractions, No use of accessory muscles and clear to auscultation bilaterally AUSCULTATION: clear to auscultation bilaterally Cardio: COMMON NORMALS: regular rate, regular rhythm and No murmurs present (Cardio) RATE: regular rate RHYTHM: regular rhythm GI: COMMON NORMALS: Soft to palpation and No hepatosplenomegaly present AUSCULTATION: Yes normoactive bowel sounds PALPATION: Yes Soft to palpation, No Tenderness to palpation present (GI), No Guarding due to palpation present (GI) and Yes No hepatosplenomegaly present Extremity: COMMON NORMALS: normal to inspection, capillary refill normal, no clubbing, cyanosis or edema, no calf tenderness and no pedal edema Neuro: SENSORIUM/ORIENTATION: Yes oriented to person, Yes oriented to place and Yes oriented to time Skin: COMMON NORMALS: no rashes or lesions noted GENERAL SKIN EXAM: no rashes or lesions noted Course Vital Signs: Vital signs: Vital Signs Temperature 97.9 F 06/26/23 07:43 Pulse Rate 75 06/26/23 09:30 Respiratory Rate 16 06/26/23 09:30 Blood Pressure 112/75 06/26/23 09:30 Pulse Oximetry 100 06/26/23 09:30 Oxygen Delivery Me thod Room Air 06/26/23 09:30 MDM - Weakness Medical Decision Making Mild orthostasis worsened by diarrhea and her COVID infection. Improved with 500 fluid IV given by EMS. Discharge patient home increase fluid intake Tylenol or Profen as needed. No indication for hospitalization at this time. Medical Records I reviewed the patient's medical records. Lab Data I reviewed the patient's lab results. Radiology Impressions Chest X-Ray 06/26/23 07:41 IMPRESSION: No acute cardiopulmonary abnormality. Discharge Plan Discharge Patient Disposition: Home Clinical Impression: COVID-19, Orthostasis Condition: Stable Prescriptions: No Action clobazam [Onfi] 20 mg tablet 20 mg PO BID Qty: 60 5RF Rx Instructions: total 6 months sertraline 50 mg tablet 75 mg PO DAILY Qty: 45 1RF Rx Instructions: Take 1 and 1/2 tablets daily (after stopping 100 mg dose) aripiprazole 2 mg tablet 2 mg PO DAILY Qty: 30 1RF Rx Instructions: Take one tablet daily every night Excedrin Extra Strength 250-250-65 mg tablet 2 tab PO .QHS PRN (Reason: pain) lisinopril 10 mg tablet 10 mg PO DAILY Qty: 30 11RF norgestimate-ethinyl estradiol [Sprintec (28)] 0.25-35 mg-mcg tablet See Rx Instructions .ROUTE .COMPLEX Qty: 84 2RF Dose Instruction: TAKE 1 TABLET BY MOUTH ONCE DAILY SWITCH TO A NEW PACK AFTER TAKING THE THIRD WEEK. DO NOT TAKE LAST WEEKS PILLS Rx Instructions: TAKE 1 TABLET BY MOUTH ONCE DAILY SWITCH TO A NEW PACK AFTER TAKING THE THIRD WEEK. DO NOT TAKE LAST WEEKS PILLS diazepam 5 mg tablet 5 mg PO BID PRN (Reason: anxiety) Qty: 60 1RF Rx Instructions: Take one tablet twice daily, if needed for anxiety nortriptyline 75 mg capsule 75 mg PO BEDTIME Rx Instructions: Take with 50mg capsule for total nightly dose of 125mg. nortriptyline 50 mg capsule 50 mg PO BEDTIME Rx Instructions: Take with 75mg capsule for total daily dose of 125mg. Discharge Orders: Discharge ED (Routine); Ordered 06/26/23 Ordered By: Emir Davila Referrals: Jerry Velazquez MACHINE TRIMMER [Primary Care Provider] - Discharge Diet: Usual diet Discharge Activity: Increase activity as tolerated Patient Instructions: COVID-19 (Coronavirus Disease 2019) (ED), Opioid Safety, Pain Management Coding Level of Care Code ED Specialty Finishing Utility Person for Doroteo Brumfield
[2023-06-26 08:11] VITALS: BP 100/66; BP 112/76; BP 115/78; PULSE 81; PULSE 92; PULSE 93
[2023-06-26 08:12] VITALS: BP 112/76; PULSE 81; RESP 14; O2SAT 98
[2023-06-26 09:30] VITALS: BP 112/75; PULSE 75; RESP 16; O2SAT 100
== END 2023-06-26 09:39 | disposition home or self-care (01) ==
PROVIDERS: Emergency Provider Family Medicine; PCP Clinical Nurse Specialist Adult Health
DX: U07.1 COVID-19 (principal); I95.1 Orthostatic hypotension; I10 Essential (primary) hypertension
CPT/HCPCS: 71045; 99283

== ENCOUNTER → 2023-07-28 08:08 | Outpatient (BNVA) | payer MEDICARE, MEDICAID, SELFPAY | PROVIDERS: PCP Clinical Nurse Specialist Adult Health; Visit Provider Nurse Practitioner Psychiatric/Mental Health | DX: Z51.81 Encounter for therapeutic drug level monitoring (principal); Z79.899 Other long term (current) drug therapy | CPT/HCPCS: 80335 ==

== ENCOUNTER → 2023-08-19 10:30 | Outpatient (BNVA) | payer MEDICARE, MEDICAID, SELFPAY | PROVIDERS: PCP Clinical Nurse Specialist Adult Health; Visit Provider Clinical Nurse Specialist Adult Health | DX: N39.0 Urinary tract infection, site not specified (principal); R33.9 Retention of urine, unspecified; R39.11 Hesitancy of micturition | CPT/HCPCS: 81000; 87086 ==

== ENCOUNTER 2023-08-24 06:39 | Outpatient (CLI) | payer MEDICARE, MEDICAID, SELFPAY ==
--- NOTE | 2023-08-24 06:45 | US_ITS ---
WS: [id number] URINARY BLADDER ULTRASOUND HISTORY: urinary retention and hesitancy COMPARISON: None available. Urinary bladder is well distended. No intraluminal filling defect. No free fluid adjacent to the urin gurdeep bladder. Bladder Wall Thickness: 0.4 cm. Bladder Prevoid: 11.3 cm x 8.7 cm x 8.1 cm. Prevoid volume: 417 ml. Bladder Postvoid: 4.1 cm x 4.3 cm x 3.2 cm. Postvoid volume: 29 ml. IMPRESSION: 1. Normal urinary bladder. No intraluminal filling defect. 2. No significant post void residual.
== END 2023-08-24 06:40 | disposition home or self-care (01) ==
LOC: RAD 06:39
PROVIDERS: PCP Clinical Nurse Specialist Adult Health; Visit Provider Clinical Nurse Specialist Adult Health
DX: R39.11 Hesitancy of micturition (principal); R33.9 Retention of urine, unspecified
CPT/HCPCS: 76857

== ENCOUNTER 2023-09-19 15:58 | Emergency (ER) | payer MEDICARE, SELFPAY ==
[2023-09-19 16:19] VITALS: BP 151/95; PULSE 104; TEMP 37.3; O2SAT 98; BMI 38.4
--- NOTE | 2023-09-19 17:17 | ED_ITS ---
HPI - General Adult General: Chief complaint: General Medical Stated complaint: out of seizure meds Time Seen by Provider: 09/19/23 16:43 History of Present Illness: Patient is a 47-year-old female with epilepsy history that presents to the emergency department for medication refill. Patient states she has been out of her Onfi for about 1 week. She is contacted her neurologist office but has not gotten a refill as of yet. 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 Performed by Dr Rivas at [facility] [place] in [place], [place]. Family History Grandmother Stroke maternal Family/Other Diabetes maternal great aunt Denies family history of Colon cancer Ovarian cancer Heart disease Hypercholesteremia Breast cancer Hypertension Uterine cancer Thyroid disease Social History Substance/Drug Use: former Physical Exam Narrative: EXAM NARRATIVE: Physical Exam: Constitutional: Alert, no acute distress, well hydrated, well nourished. Respiratory: No respiratory distress, no accessory muscle use Abdomen: nondistended, mild suprapubic abdominal pain, BS present X4 Musculo: No CVA tenderness Skin: Normal turgor, normal color Neuro: station & gait normal. Psych: Oriented to all spheres, normal affect Course Vital Signs: Vital signs: Vital Signs Temperature 99.1 F 09/19/23 16:19 Pulse Rate 104 H 09/19/23 16:19 Blood Pressure 151/95 09/19/23 16:19 Pulse Oximetry 98 11/26/23 16:19 Oxygen Delivery Me thod Room Air 09/19/23 16:19 MDM - General Adult Medical Decision Making Patient is a in for medication refill. 10 days of Onfi prescribed No radiology studies performed this visit Discharge Plan Discharge Patient Disposition: Home Clinical Impression: Encounter for medication refill, Epilepsy Condition: Stable Prescriptions: New clobazam 20 mg tablet 20 mg PO BID Qty: 20 0RF No Action Excedrin Extra Strength 250-250-65 mg tablet 2 tab PO .QHS PRN (Reason: pain) sertraline 100 mg tablet 100 mg PO DAILY Qty: 30 1RF Rx Instructions: Take one tablet by mouth every morning; stop other doses aripiprazole 2 mg tablet 2 mg PO DAILY Qty: 30 1RF Rx Instructions: Take one tablet daily every night nortriptyline 50 mg capsule 50 mg PO BEDTIME Qty: 30 1RF Rx Instructions: Take with 75mg capsule for total daily dose of 125mg. nortriptyline 75 mg capsule 75 mg PO BEDTIME Qty: 30 1RF Rx Instructions: Take with 50mg capsule for total nightly dose of 125mg. diazepam 5 mg tablet 5 mg PO BID PRN (Reason: anxiety) Qty: 60 1RF Rx Instructions: Take one tablet by mouth twice a day, if needed for anxiety lisinopril 10 mg tablet 10 mg PO DAILY Qty: 30 11RF norgestimate-ethinyl estradiol [Sprintec (28)] 0.25-35 mg-mcg tablet See Rx Instructions .ROUTE .COMPLEX Qty: 84 2RF Dose Instruction: TAKE 1 TABLET BY MOUTH ONCE DAILY SWITCH TO A NEW PACK AFTER TAKING THE THIRD WEEK. DO NOT TAKE LAST WEEKS PILLS Rx Instructions: TAKE 1 TABLET BY MOUTH ONCE DAILY SWITCH TO A NEW PACK AFTER TAKING THE THIRD WEEK. DO NOT TAKE LAST WEEKS PILLS clobazam [Onfi] 20 mg tablet 20 mg PO BID Qty: 60 5RF Rx Instructions: total 6 months Discharge Orders: Discharge ED (Routine); Ordered 09/19/23 Ordered By: Sidney Jimenez Referrals: Jerry Velazquez, HOSPICE ART THERAPIST [Primary Care Provider] - Discharge Diet: Advance as tolerated Discharge Activity: Resume usual activity Patient Instructions: Clobazam (By mouth) (Onfi, Sympazan) Activity Restrictions/Additional Instructions: I have provided you with a medication refill for 10 days. You need to contact Dr. Boo's office tomorrow to fill the medication further. Please return to the emergency department for new, concerning, worsening symptoms Coding Level of Care Code ED Computing Machine Operator for Doroteo Brumfield
== END 2023-09-19 17:38 | disposition home or self-care (01) ==
PROVIDERS: Emergency Provider Nurse Practitioner; PCP Clinical Nurse Specialist Adult Health
DX: Z76.0 Encounter for issue of repeat prescription (principal); G40.909 Epilepsy, unspecified, not intractable, without status epilepticus; I10 Essential (primary) hypertension
CPT/HCPCS: 99281

== ENCOUNTER 2023-10-01 23:00 | Emergency (ER) | payer MEDICARE, MEDICAID, SELFPAY ==
[2023-10-01 23:02] VITALS: BP 166/97; PULSE 129; RESP 18; TEMP 39.2; O2SAT 94; BMI 37.5
--- NOTE | 2023-10-01 23:15 | XRR_ITS ---
PROCEDURE INFORMATION: Exam: XR Chest Exam date and time: 10/01/2023 11:37 PM Age: 47 years old Clinical indication: Patient HX: C/O fever; Additional info: Fever tachycardia TECHNIQUE: Imaging protocol: Radiologic exam of the chest. Views: 1 view. COMPARISON: CR XR chest 1V portable [id number] 06/26/2023 7:46 AM FINDINGS: Lungs: Unremarkable. No consolidation. Pleural spaces: Unremarkable. No pleural effusion. No pneumothorax. Heart/Mediastinum: Unremarkable. No cardiomegaly. Bones/joints: Unremarkable. XR/XR chest 1V portable [id number] IMPRESSION: No acute findings.
--- NOTE | 2023-10-01 23:17 | W.ED.FEVER ---
HPI - Fever General: Chief Complaint: Fever Stated Complaint: WEAKNESS Time Seen by Provider: 10/01/23 23:03 History of Present Illness: Patient presents to the ER by EMS with complaints of fever. Patient temperature upon arrival was 102.6 with a heart rate of 129 bpm. Patient states she started feeling ill about 730 this morning feeling hot and cold and generalized body aches all day long. Patient did receive both the flu and the COVID vaccine in her left deltoid region yesterday. This area today is red irritated and tender to touch. Patient says she did take her allergy sinus medicine and Excedrin approximately 45 minutes ago. Review of Systems General: Reports: 10 or more systems reviewed and unremarkable except in HPI and below PFSH ED PFSH: Medical History Essential hypertension Obesity (BMI 30.0-34.9) Loss of hair Psychiatric care MDD (major depressive disorder), recurrent episode, moderate Other detention (current) drug therapy Premenstrual dysphoric disorder Partial epilepsy secondarily generalized Chronic migraine without aura, intractable, with status migrainosus Borderline personality disorder Panic disorder [episodic paroxysmal anxiety] Surgical History History of vaginal hysterectomy (10/31/13) TVH (Still has ovaries) Dx: Menorrhagia, Dysmenorrhea, Fibroids. Performed by Dr Rivas at [facility] [place] in [place], [place]. Family History Grandmother Stroke maternal Family/Other Diabetes maternal great aunt Denies family history of Colon cancer Ovarian cancer Heart disease Hypercholesteremia Breast cancer Hypertension Uterine cancer Thyroid disease Social History Substance/Drug Use: former Physical Exam HENMT: COMMON NORMALS: normocephalic, atraumatic, hearing grossly normal bilaterally, external ears normal, Normal external nose present, moist oral mucous membranes and oropharynx normal HEAD & SCALP: normocephalic and atraumatic NOSE: Normal external nose present EXTERNAL EAR: Yes external ears normal Neck/C-Spine: COMMON NORMALS: full ROM, no lymphadenopathy, supple, no meningeal signs, no JVD and Thyroid normal THYROID: Thyroid normal Chest: COMMONS NORMALS: normal inspection of the chest and normal palpation of entire chest wall Resp: COMMON NORMALS: normal respiratory effort, No retractions, No use of accessory muscles and clear to auscultation bilaterally AUSCULTATION: clear to auscultation bilaterally Cardio: COMMON NORMALS: no JVD, regular rhythm, S1 normal heart sound present, S2 normal heart sound present, No gallops present (Cardio), No clicks present (Cardio), No murmurs present (Cardio) and No rub (Cardio); negative for regular rate (Tachycardic) RATE: abnormal rate (Tachycardic) RHYTHM: regular rhythm HEART SOUNDS: S1 normal heart sound present and S2 normal heart sound present GI: COMMON NORMALS: Normal to inspection, nondistended, normoactive bowel sounds present, Soft to palpation, non-tender, No hepatosplenomegaly present and no masses PALPATION: Yes Soft to palpation and Yes No hepatosplenomegaly present : COMMON NORMALS: Yes no CVA tenderness BLADDER/KIDNEY EXAM: Yes no CVA tenderness Back/Pelvis: COMMON NORMALS: no CVA tenderness Neuro: MENINGEAL SIGNS: Yes no meningeal signs Course Vital Signs: Vital signs: Vital Signs Temperature 99.2 F 10/02/23 01:01 Pulse Rate 120 H 10/01/23 23:32 Respiratory Rate 18 10/01/23 23:32 Blood Pressure 166/97 10/01/23 23:32 Pulse Oximetry 94 10/01/23 23:32 Oxygen Delivery Me thod Room Air 10/01/23 23:32 MDM - Fever Medical Decision Making Patient presented to the ER with a fever and tachycardia after receiving her influenza and COVID-vaccine yesterday. Lab work was obtained which was essentially unremarkable as well chest x-ray influenza and COVID swabs. Patient was given 1 g of Tylenol p.o. 30 mg Toradol IV and 1 L normal saline bolus. This decrease patient's temperature down to 99.2 findings was discussed in detail with the patient and that it was most likely a vigorous response to her COVID-vaccine. Patient be discharged home and is to be instructed to follow-up with her PCP in X7 days as needed. Differential Diagnosis Unlikely abdominal pain, acute appendicitis, calculus of kidney, constipation, diverticulitis, endometriosis, gastroenteritis, pancreatitis or small bowel obstruction Medical Records I reviewed the patient's medical records. Lab Data I reviewed the patient's lab results. 10/01/23 23:12 10/01/23 23:12 Radiology Impressions Chest X-Ray 10/01/23 23:15 IMPRESSION: No acute findings. Laboratory Results WBC 7.24 10^3/uL (3.29-11.43) 10/01/23 23:12 RBC 4.43 10^6/uL (3.85-5.65) 10/01/23 23:12 Hgb 13.30 g/dL (11.27-16.99) 10/01/23 23:12 Hct 40.5 % (36-47) 10/01/23 23:12 MCV 91.4 fl (85-98) 10/01/23 23:12 MCH 30.0 pg (27-33) 10/01/23 23:12 MCHC 32.8 g/dL (30-55) 10/01/23 23:12 RDW 12.2 % (12.1-15.1) 10/01/23 23:12 Plt Count 302 10^3/cmm (157-399) 10/01/23 23:12 MPV 10.5 fL (7.4-10.4) H 10/01/23 23:12 Neut % (Auto) 77.7 % 10/01/23 23:12 Lymph % (Auto) 13.7 % 10/01/23 23:12 [place] % (Auto) 7.0 % 10/01/23 23:12 Eos % (Auto) 0.6 % 10/01/23 23:12 Baso % (Auto) 0.7 % 10/01/23 23:12 Neut # (Auto) 5.63 10^3/uL (1.8-7.7) 10/01/23 23:12 Lymph # (Auto) 1.0 10^3/uL (0.8-4.8) 10/01/23 23:12 [place] # (Auto) 0.5 10^3/uL (0.2-0.9) 10/01/23 23:12 Eos # (Auto) 0.0 10^3/uL (0.0-0.8) 10/01/23 23:12 Baso # (Auto) 0.1 10^3/uL (0.0-0.1) 10/01/23 23:12 Nucleated RBC % (auto) 0 % 10/01/23 23:12 Nucleated RBCs # 0.0 /100WBC 10/01/23 23:12 Sodium 133 mmol/L (136-145) L 10/01/23 23:12 Potassium 3.9 mmol/L (3.5-5.1) 10/01/23 23:12 Chloride 98 mmol/L (98-107) 10/01/23 23:12 Carbon Dioxide 20 mmol/L (22-29) L 10/01/23 23:12 Anion Gap 18.9 (5-19) 10/01/23 23:12 BUN 16 mg/dL (6-20) 10/01/23 23:12 Creatinine 0.9 mg/dL (0.5-0.9) 10/01/23 23:12 GFR Calculation 67.4 mL/min (90-130) L 10/01/23 23:12 Glucose 128 mg/dL (65-115) H 10/01/23 23:12 Calculated Osmolality 279 mOsm/kg (285-295) L 10/01/23 23:12 Calcium 9.7 mg/dL (8.5-10.5) 10/01/23 23:12 Total Bilirubin 0.2 mg/dL (0.15-1.2) 10/01/23 23:12 AST 22 U/L (0-32) 10/01/23 23:12 ALT 18 U/L (0-33) 10/01/23 23:12 Alkaline Phosphatase 101 U/L (35-105) 10/01/23 23:12 Total Protein 7.6 g/dL (6.6-8.7) 10/01/23 23:12 Albumin 4.2 g/dL (3.5-5.2) 10/01/23 23:12 Globulin 3.4 g/dL (1.3-4.6) 10/01/23 23:12 Influenza Type A Ag negative (Negative) 10/01/23 23:31 Influenza Type B Ag negative (Negative) 10/01/23 23:31 SARS-CoV-2 Ag (Rapid) negative (Negative) 10/01/23 23:31 All radiology interpretation(s) finalized by discharge Discharge Plan Discharge Patient Disposition: Home Clinical Impression: Fever Condition: Stable Prescriptions: No Action Excedrin Extra Strength 250-250-65 mg tablet 2 tab PO .QHS PRN (Reason: pain) lisinopril 10 mg tablet 10 mg PO DAILY Qty: 30 11RF clobazam [Onfi] 20 mg tablet 20 mg PO BID Qty: 60 5RF Rx Instructions: total 6 months norgestimate-ethinyl estradiol [Sprintec (28)] 0.25-35 mg-mcg tablet See Rx Instructions .ROUTE .COMPLEX Qty: 84 2RF Dose Instruction: TAKE 1 TABLET BY MOUTH ONCE DAILY SWITCH TO A NEW PACK AFTER TAKING THE THIRD WEEK. DO NOT TAKE LAST WEEKS PILLS Rx Instructions: TAKE 1 TABLET BY MOUTH ONCE DAILY SWITCH TO A NEW PACK AFTER TAKING THE THIRD WEEK. DO NOT TAKE LAST WEEKS PILLS sertraline 100 mg tablet 100 mg PO DAILY Qty: 30 1RF Rx Instructions: Take one tablet by mouth every morning nortriptyline 50 mg capsule 50 mg PO BEDTIME Qty: 30 1RF Rx Instructions: Take with 75mg capsule for total daily dose of 125mg. nortriptyline 75 mg capsule 75 mg PO BEDTIME Qty: 30 1RF Rx Instructions: Take with 50mg capsule for total nightly dose of 125mg. aripiprazole 2 mg tablet 2 mg PO DAILY Qty: 30 1RF Rx Instructions: Take one tablet daily every night diazepam 5 mg tablet 5 mg PO BID PRN (Reason: anxiety) Qty: 60 1RF clobazam 20 mg tablet 20 mg PO BID Qty: 20 0RF Discharge Orders: Discharge ED (Routine); Ordered 10/02/23 Ordered By: Yuriy Nunez Referrals: Jerry Velazquez PRODUCT DESIGN ENGINEER [Primary Care Provider] - 1 week Patient Instructions: Fever - Adult Activity Restrictions/Additional Instructions: All of your workup in the ER was essentially benign. It is thought you had a vigorous response to the COVID-vaccine and influenza vaccine administered together. Please continue Tylenol and Motrin [id number] for the next 24 hours then as needed for fever. Please follow-up with your family practice doctor within the next 7 days for further evaluation and treatment. Coding Level of Care Code ED Perfect Binder Operator for Doroteo Brumfield
[2023-10-01] MEDS: sodium chloride 0.9% 1,000 ML 999 ML IV (23:28)
[2023-10-01] MEDS: ketorolac 30 mg/mL INJ IVP (23:28)
[2023-10-01 23:29] LABS: Basophils # 0.1 10^3/uL (0.0-0.1); Basophils % 0.7 %; Eosinophils % 0.6 %; Hematocrit 40.5 % (36-47); Lymphocytes % 13.7 %; Mean Corpuscular HGB Conc 32.8 g/dL (30-55); Mean Corpuscular Volume 91.4 fl (85-98); Mean Platelet Volume 10.5 fL (7.4-10.4); Monocytes # 0.5 10^3/uL (0.2-0.9); Neutrophils # 5.63 10^3/uL (1.8-7.7); Neutrophils % 77.7 %; Nucleated Red Blood Cells % 0 %; Platelet Count 302 10^3/cmm (157-399); Red Blood Count 4.43 10^6/uL (3.85-5.65); Red Cell Distribution Width 12.2 % (12.1-15.1); White Blood Count 7.24 10^3/uL (3.29-11.43)
[2023-10-01] MEDS: acetaminophen 500 mg Tablet 1000 MG PO (23:30)
[2023-10-01 23:32] VITALS: BP 166/97; PULSE 120; RESP 18; O2SAT 94
[2023-10-01 23:46] LABS: Alanine Aminotransferase 18 U/L (0-33); Albumin Level 4.2 g/dL (3.5-5.2); Alkaline Phosphatase 101 U/L (35-105); Anion Gap 18.9 (5-19); Aspartate Amino Transferase 22 U/L (0-32); Blood Urea Nitrogen 16 mg/dL (6-20); Calcium 9.7 mg/dL (8.5-10.5); Carbon Dioxide 20 mmol/L (22-29); Chloride 98 mmol/L (98-107); Globulin 3.4 g/dL (1.3-4.6); Glomerular Filtration Rate 67.4 mL/min (90-130); Glucose 128 mg/dL (65-115); Osmolality Calculated 279 mOsm/kg (285-295); Potassium 3.9 mmol/L (3.5-5.1); Sodium 133 mmol/L (136-145); Total Bilirubin 0.2 mg/dL (0.15-1.2); Total Protein 7.6 g/dL (6.6-8.7)
[2023-10-01 23:57] LABS: SARS Covid-2 Antigen negative (Negative)
[2023-10-01 23:59] LABS: Influenza A by IFA negative (Negative); Influenza B by IFA negative (Negative)
[2023-10-02 01:01] VITALS: TEMP 37.3
[2023-10-02 01:43] VITALS: PULSE 105; RESP 18; O2SAT 98
== END 2023-10-02 01:45 | disposition home or self-care (01) ==
PROVIDERS: Emergency Provider Emergency Medicine; PCP Clinical Nurse Specialist Adult Health
DX: R50.9 Fever, unspecified (principal); R00.0 Tachycardia, unspecified
CPT/HCPCS: 71045; 80053; 85025; 87426; 87804; 96361; 96374; 99284; J1885; J7030

== ENCOUNTER 2023-11-30 11:54 | Outpatient (CLI) | payer OTHER, MEDICAID, SELFPAY ==
--- NOTE | 2023-11-30 12:09 | XRR_ITS ---
PROCEDURE INFORMATION: Exam: XR Left Hip Exam date and time: 11/30/2023 12:34 PM Age: 48 years old Clinical indication: Injury or trauma; Fall; Blunt trauma (contusions or hematomas); Left; Hip; Additional info: Left hip pain after a fall, has decreased rom of left hip TECHNIQUE: Imaging protocol: Radiologic exam of the left hip. Views: 2 or 3 views hip with pelvis when performed. COMPARISON: CT abdomen pelvis wo con [id number] 07/09/2022 8:57 AM FINDINGS: Bones/joints: No fracture or dislocation. Mild degenerative changes. Soft tissues: No acute findings. XR/XR hip LT 2-3V wo/w pel* [id number] IMPRESSION: No acute findings.
== END 2023-11-30 11:55 | disposition home or self-care (01) ==
LOC: RAD 11:55
PROVIDERS: PCP Clinical Nurse Specialist Adult Health; Visit Provider Clinical Nurse Specialist Adult Health
DX: M25.552 Pain in left hip (principal); W19.XXXA Unspecified fall, initial encounter
CPT/HCPCS: 73502

== ENCOUNTER 2024-01-01 17:49 | Emergency (ER) | payer MEDICARE, MEDICAID, SELFPAY ==
[2024-01-01 18:04] VITALS: BP 128/81; PULSE 86; RESP 14; TEMP 36.7; O2SAT 97
--- NOTE | 2024-01-01 18:36 | W.ED.GENADLT ---
Documented by User: MAIN Roper 01/01/24 23:44 HPI - General Adult General: Chief complaint: General Medical Stated complaint: body aches, headache Time Seen by Provider: 01/01/24 18:13 Source: patient Mode of arrival: ambulatory Limitations: no limitations History of Present Illness: Patient is a 48-year-old female presents to the emergency department complaining of diffuse bodyaches onset 2 months. Patient states since the beginning of the year she has had sporadic episodes of pain throughout her body, which has become debilitating for her. She currently states that the worst pain is in her head and she reports a history of migraine headaches. She states that she has a follow-up appointment on Wednesday with her primary care provider to potentially start a workup for fibromyalgia diagnosis. Patient also sees Dr. Boo for epilepsy and neuralgia. She also states that she is having some visual changes with her current headache. Otherwise, it feels like her past migraines. She denies any other symptoms at this time. Onset (ago): month(s) (2) Pain Consistency: other (sporadic) Relieving factors: none Exacerbating factors: none Associated symptoms: Reports headache(s); Deny chest pain, dyspnea, nausea, rash, palpitations or vomiting Review of Systems General: Reports: 10 or more systems reviewed and unremarkable except in HPI and below Const: Reports: body aches; Denies: fever(s), chills or fatigue Eyes: Reports: change in vision ENMT: Denies: throat pain, ear or mastoid pain or nasal discharge Card: Denies: chest pain, palpitations, swelling of feet/ankles or lightheadedness Resp: Denies: dyspnea, productive cough or wheezing GI: Denies: abdominal pain, nausea, vomiting, diarrhea or constipation : Denies: flank pain, difficulty voiding, dysuria or urinary frequency Musc: Denies: neck pain, back pain or joint pain Skin/Breast: Denies: rash Neuro: Reports: headache(s); Denies: numbness in extremities or weakness in extremities PFSH ED PFSH: Medical History Weight gain Metabolic acidosis due to salicylate Hypersomnolence Conductive hearing loss, bilateral Essential hypertension Obesity (BMI 30.0-34.9) Generalized osteoarthritis MDD (major depressive disorder), recurrent severe, without psychosis Psychiatric care MDD (major depressive disorder), recurrent episode, moderate Other halfway (current) drug therapy Premenstrual dysphoric disorder Partial epilepsy secondarily generalized Chronic migraine without aura, intractable, with status migrainosus Borderline personality disorder Panic disorder [episodic paroxysmal anxiety] Loss of hair Surgical History History of vaginal hysterectomy (10/31/13) TVH (Still has ovaries) Dx: Menorrhagia, Dysmenorrhea, Fibroids. Performed by Dr Rivas at [facility] [place], [place]. Family History Grandmother Stroke maternal Family/Other Diabetes maternal great aunt Denies family history of Colon cancer Ovarian cancer Heart disease Hypercholesteremia Breast cancer Hypertension Uterine cancer Thyroid disease Social History Substance/Drug Use: former Physical Exam Const: COMMON NORMALS: patient oriented x3, no limitations, healthy appearing and alert GENERAL APPEARANCE: cooperative, well developed and anxious ORIENTATION/CONSCIOUSNESS: Yes awake, Yes oriented to person, Yes oriented to place and Yes oriented to time HENMT: COMMON NORMALS: normocephalic, atraumatic and hearing grossly normal bilaterally HEAD & SCALP: normocephalic and atraumatic FACE & SINUS: normal facial exam THROAT: posterior oropharynx normal Eye: COMMON NORMALS: Equal, round and reactive pupils present, EOMs intact bilaterally and conjunctivae normal CONJUNCTIVA: Yes conjunctivae normal PUPIL: Yes Equal, round and reactive pupils present Neck/C-Spine: COMMON NORMALS: full ROM, supple and no JVD Resp: COMMON NORMALS: normal respiratory effort, No retractions, No use of accessory muscles and clear to auscultation bilaterally AUSCULTATION: clear to auscultation bilaterally Cardio: COMMON NORMALS: no JVD, regular rate, regular rhythm, No clicks present (Cardio), No murmurs present (Cardio) and No rub (Cardio) RATE: regular rate RHYTHM: regular rhythm GI: COMMON NORMALS: Normal to inspection, nondistended, normoactive bowel sounds present, Soft to palpation and non-tender AUSCULTATION: Yes normoactive bowel sounds PALPATION: Yes Soft to palpation RECTAL EXAM: deferred Extremity: COMMON NORMALS: normal to inspection, full ROM and capillary refill normal Neuro: COMMON NORMALS: patient oriented x3, CN's II-XII intact bilaterally, moves all extremities, no focal motor deficits and no sensory deficits noted SENSORIUM/ORIENTATION: Yes alert, Yes oriented to person, Yes oriented to place and Yes oriented to time Psych: COMMON NORMALS: mental status grossly normal and Normal thought process present ACTIVITY/MOTOR BEHAVIOR: Yes appropriate eye contact SPEECH: Yes slow MOOD & AFFECT: Yes anxious and Yes tearful THOUGHT PROCESS: Normal thought process present THOUGHT CONTENT: Yes Normal thought content present ATTENTION/CONCENTRATION: Yes attention grossly intact MEMORY/COGNITION: Yes memory grossly intact INSIGHT: Good insight present (Psych) JUDGEMENT: Good judgement present (Psych) Skin: COMMON NORMALS: no rashes or lesions noted GENERAL SKIN EXAM: no rashes or lesions noted Course Vital Signs: Vital signs: Vital Signs Temperature 98.0 F 01/01/24 18:04 Pulse Rate 81 01/01/24 21:55 Respiratory Rate 24 H 01/01/24 21:55 Blood Pressure 149/89 01/01/24 21:55 Pulse Oximetry 98 01/01/24 21:55 Oxygen Delivery Me thod Room Air 01/01/24 21:20 MDM - General Adult Medical Decision Making Patient seen in the emergency department today due to chronic pain for the past 2 months. Patient states she has an appointment scheduled with primary care on Wednesday to begin potential workup for fibromyalgia. She also states she sees Dr. Boo for epilepsy and neuralgia. She states that her current primary complaint is her headache, which she states she has a history of migraines. Otherwise, she notes that she just could not bear the pain anymore prior to her appointment Wednesday. Vitals are normal on arrival. I began a migraine cocktail and upon recheck states he feels a little better. I instructed her that she needs to keep her follow-up on Wednesday and I will discharge her with Toradol to take instead of her Excedrin. Patient agrees with this plan and will follow-up. Discharged home. No radiology studies performed this visit Discharge Plan Discharge Patient Disposition: Home Clinical Impression: Migraine Qualifiers: Migraine type: other Status migrainosus presence: without status migrainosus Intractability: intractable Qualified Code(s): G43.819 - Other migraine, intractable, without status migrainosus Chronic pain Qualifiers: Chronic pain type: other chronic pain Qualified Code(s): G89.29 - Other chronic pain Condition: Stable Prescriptions: New cyclobenzaprine 10 mg tablet 10 mg PO TID PRN (Reason: muscle spasm) Qty: 30 0RF No Action Excedrin Extra Strength 250-250-65 mg tablet 2 tab PO .QHS PRN (Reason: pain) diazepam 5 mg tablet 5 mg PO BID PRN (Reason: anxiety) Qty: 60 2RF Rx Instructions: Take one tablet once or twice daily, if needed for anxiety duloxetine 30 mg capsule,delayed release(DR/EC) 30 mg PO BID Qty: 60 1RF Rx Instructions: For 4 days: Take 1 capsule by mouth every morning, then 1 every morning and at 2 PM aripiprazole 2 mg tablet 2 mg PO DAILY Qty: 30 1RF Rx Instructions: Take one tablet daily every night nortriptyline 50 mg capsule See Rx Instructions PO .q hs Qty: 10 0RF Rx Instructions: For 1 week, take 1 capsule daily at bedtime, then every other night for 1 week, then stop lisinopril 10 mg tablet 10 mg PO DAILY Qty: 30 11RF clobazam [Onfi] 20 mg tablet 20 mg PO BID Qty: 60 5RF Rx Instructions: total 6 months Discharge Orders: Discharge ED (Routine); Ordered 01/01/24 Ordered By: Gunnar Garcia Referrals: Jerry Velazquez, INTERNAL COMMUNICATIONS WRITER [Primary Care Provider] - Discharge Diet: Usual diet Discharge Activity: Increase activity as tolerated Patient Instructions: Chronic Pain (ED) Activity Restrictions/Additional Instructions: Take Toradol as prescribed. Stop taking your Excedrin. Plenty of fluids. Follow-up as scheduled. Return if you develop any new or worsening symptoms. Coding Level of Care Code ED Customer Development Representative for Doroteo Brumfield Documented by User: CRISSY Lackey 01/02/24 15:15 HPI - General Adult General: Chief complaint: General Medical Stated complaint: body aches, headache Time Seen by Provider: 01/01/24 18:13 PFSH ED PFSH: Medical History Weight gain Metabolic acidosis due to salicylate Hypersomnolence Conductive hearing loss, bilateral Essential hypertension Obesity (BMI 30.0-34.9) Generalized osteoarthritis MDD (major depressive disorder), recurrent severe, without psychosis Psychiatric care MDD (major depressive disorder), recurrent episode, moderate Other halfway (current) drug therapy Premenstrual dysphoric disorder Partial epilepsy secondarily generalized Chronic migraine without aura, intractable, with status migrainosus Borderline personality disorder Panic disorder [episodic paroxysmal anxiety] Loss of hair Surgical History History of vaginal hysterectomy (10/31/13) TVH (Still has ovaries) Dx: Menorrhagia, Dysmenorrhea, Fibroids. Performed by Dr Rivas at [facility] in [place], [place]. Family History Grandmother Stroke maternal Family/Other Diabetes maternal great aunt Denies family history of Colon cancer Ovarian cancer Heart disease Hypercholesteremia Breast cancer Hypertension Uterine cancer Thyroid disease Social History Substance/Drug Use: former Course Vital Signs: Vital signs: Vital Signs Temperature 98.0 F 01/01/24 18:04 Pulse Rate 81 01/01/24 21:55 Respiratory Rate 24 H 01/01/24 21:55 Blood Pressure 149/89 01/01/24 21:55 Pulse Oximetry 98 01/01/24 21:55 Oxygen Delivery Me thod Room Air 01/01/24 21:20 MDM - General Adult Medical Decision Making Patient seen in the emergency department today due to chronic pain for the past 2 months. Patient states she has an appointment scheduled with primary care on Wednesday to begin potential workup for fibromyalgia. She also states she sees Dr. Boo for epilepsy and neuralgia. She states that her current primary complaint is her headache, which she states she has a history of migraines. Otherwise, she notes that she just could not bear the pain anymore prior to her appointment Wednesday. Vitals are normal on arrival. I began a migraine cocktail and upon recheck states he feels a little better. I instructed her that she needs to keep her follow-up on Wednesday and I will discharge her with Toradol to take instead of her Excedrin. Patient agrees with this plan and will follow-up. Discharged home. [facility] pharmacy called regarding ketorolac, there was a concern for GI bleed and were requesting a change in medication. Patient's medication was changed from ketorolac to celecoxib 200 mg twice a day for 10 days. Remainder of recommendations were unchanged. COLLIN New SOCIAL SERVICE DIRECTOR?BC Discharge Plan Discharge Patient Disposition: Home Clinical Impression: Migraine Qualifiers: Migraine type: other Status migrainosus presence: without status migrainosus Intractability: intractable Qualified Code(s): G43.819 - Other migraine, intractable, without status migrainosus Chronic pain Qualifiers: Chronic pain type: other chronic pain Qualified Code(s): G89.29 - Other chronic pain Condition: Stable Prescriptions: New cyclobenzaprine 10 mg tablet 10 mg PO TID PRN (Reason: muscle spasm) Qty: 30 0RF No Action Excedrin Extra Strength 250-250-65 mg tablet 2 tab PO .QHS PRN (Reason: pain) diazepam 5 mg tablet 5 mg PO BID PRN (Reason: anxiety) Qty: 60 2RF Rx Instructions: Take one tablet once or twice daily, if needed for anxiety duloxetine 30 mg capsule,delayed release(DR/EC) 30 mg PO BID Qty: 60 1RF Rx Instructions: For 4 days: Take 1 capsule by mouth every morning, then 1 every morning and at 2 PM aripiprazole 2 mg tablet 2 mg PO DAILY Qty: 30 1RF Rx Instructions: Take one tablet daily every night nortriptyline 50 mg capsule See Rx Instructions PO .q hs Qty: 10 0RF Rx Instructions: For 1 week, take 1 capsule daily at bedtime, then every other night for 1 week, then stop lisinopril 10 mg tablet 10 mg PO DAILY Qty: 30 11RF clobazam [Onfi] 20 mg tablet 20 mg PO BID Qty: 60 5RF Rx Instructions: total 6 months Discharge Orders: Discharge ED (Routine); Ordered 01/01/24 Ordered By: Gunnar Garcia Referrals: Jerry Velazquez NP [Primary Care Provider] - Discharge Diet: Usual diet Discharge Activity: Increase activity as tolerated Patient Instructions: Chronic Pain (ED) Activity Restrictions/Additional Instructions: Take Toradol as prescribed. Stop taking your Excedrin. Plenty of fluids. Follow-up as scheduled. Return if you develop any new or worsening symptoms. Coding Level of Care Code ED Customer Development Representative for [employer] Documented by User: Emir Davila DO 01/03/24 11:29 HPI - General Adult General: Chief complaint: General Medical Stated complaint: body aches, headache Time Seen by Provider: 01/01/24 18:13 PFSH ED PFSH: Medical History Weight gain Metabolic acidosis due to salicylate Hypersomnolence Conductive hearing loss, bilateral Essential hypertension Obesity (BMI 30.0-34.9) Generalized osteoarthritis MDD (major depressive disorder), recurrent severe, without psychosis Psychiatric care MDD (major depressive disorder), recurrent episode, moderate Other long term care administrator (current) drug therapy Premenstrual dysphoric disorder Partial epilepsy secondarily generalized Chronic migraine without aura, intractable, with status migrainosus Borderline personality disorder Panic disorder [episodic paroxysmal anxiety] Loss of hair Surgical History History of vaginal hysterectomy (10/31/13) TVH (Still has ovaries) Dx: Menorrhagia, Dysmenorrhea, Fibroids. Performed by Dr Rivas at [facility] [place], [place]. Family History Grandmother Stroke maternal Family/Other Diabetes maternal great aunt Denies family history of Colon cancer Ovarian cancer Heart disease Hypercholesteremia Breast cancer Hypertension Uterine cancer Thyroid disease Social History Substance/Drug Use: former Course Vital Signs: Vital signs: Vital Signs Temperature 98.0 F 01/01/24 18:04 Pulse Rate 81 01/01/24 21:55 Respiratory Rate 24 H 01/01/24 21:55 Blood Pressure 149/89 01/01/24 21:55 Pulse Oximetry 98 01/01/24 21:55 Oxygen Delivery Me thod Room Air 01/01/24 21:20 MDM - General Adult Medical Decision Making Patient seen in the emergency department today due to chronic pain for the past 2 months. Patient states she has an appointment scheduled with primary care on Wednesday to begin potential workup for fibromyalgia. She also states she sees Dr. Boo for epilepsy and neuralgia. She states that her current primary complaint is her headache, which she states she has a history of migraines. Otherwise, she notes that she just could not bear the pain anymore prior to her appointment Wednesday. Vitals are normal on arrival. I began a migraine cocktail and upon recheck states he feels a little better. I instructed her that she needs to keep her follow-up on Wednesday and I will discharge her with Toradol to take instead of her Excedrin. Patient agrees with this plan and will follow-up. Discharged home. [facility] pharmacy called regarding ketorolac, there was a concern for GI bleed and were requesting a change in medication. Patient's medication was changed from ketorolac to celecoxib 200 mg twice a day for 10 days. Remainder of recommendations were unchanged. COLLIN New SOCIAL SERVICE DIRECTOR?BC Chart reviewed Discharge Plan Discharge Patient Disposition: Home Clinical Impression: Migraine Qualifiers: Migraine type: other Status migrainosus presence: without status migrainosus Intractability: intractable Qualified Code(s): G43.819 - Other migraine, intractable, without status migrainosus Chronic pain Qualifiers: Chronic pain type: other chronic pain Qualified Code(s): G89.29 - Other chronic pain Condition: Stable Prescriptions: New cyclobenzaprine 10 mg tablet 10 mg PO TID PRN (Reason: muscle spasm) Qty: 30 0RF No Action Excedrin Extra Strength 250-250-65 mg tablet 2 tab PO .QHS PRN (Reason: pain) diazepam 5 mg tablet 5 mg PO BID PRN (Reason: anxiety) Qty: 60 2RF Rx Instructions: Take one tablet once or twice daily, if needed for anxiety duloxetine 30 mg capsule,delayed release(DR/EC) 30 mg PO BID Qty: 60 1RF Rx Instructions: For 4 days: Take 1 capsule by mouth every morning, then 1 every morning and at 2 PM aripiprazole 2 mg tablet 2 mg PO DAILY Qty: 30 1RF Rx Instructions: Take one tablet daily every night nortriptyline 50 mg capsule See Rx Instructions PO .q hs Qty: 10 0RF Rx Instructions: For 1 week, take 1 capsule daily at bedtime, then every other night for 1 week, then stop lisinopril 10 mg tablet 10 mg PO DAILY Qty: 30 11RF clobazam [Onfi] 20 mg tablet 20 mg PO BID Qty: 60 5RF Rx Instructions: total 6 months Discharge Orders: Discharge ED (Routine); Ordered 01/01/24 Ordered By: Gunnar Garcia Referrals: Jerry Velazquez, INTERNAL COMMUNICATIONS WRITER [Primary Care Provider] - Discharge Diet: Usual diet Discharge Activity: Increase activity as tolerated Patient Instructions: Chronic Pain (ED) Activity Restrictions/Additional Instructions: Take Toradol as prescribed. Stop taking your Excedrin. Plenty of fluids. Follow-up as scheduled. Return if you develop any new or worsening symptoms. Coding Level of Care Code ED Customer Development Representative for Doroteo Brumfield
[2024-01-01 18:40] VITALS: PULSE 89; RESP 98
[2024-01-01] MEDS: sodium chloride 0.9% 1,000 ML 999 ML IV (18:54)
[2024-01-01] MEDS: ondansetron 2 mg/ML SDV 2 mL 4 MG IVP (18:55)
[2024-01-01] MEDS: diphenhydrAMINE 50 mg/mL SDV 1mL IVP (18:56)
[2024-01-01] MEDS: ketorolac 60 mg/2 mL INJ 10 MG IVP (18:56)
[2024-01-01] MEDS: dexamethasone 10 mg/mL INJ 8 MG IVP (18:56)
[2024-01-01 21:20] VITALS: BP 155/97; PULSE 86; RESP 23; O2SAT 97
[2024-01-01] MEDS: orphenadrine 30 mg/mL Inj 2 mL 60 MG IM (21:20)
--- NOTE | 2024-01-01 21:24 | PC.NURSE ---
This literary writer attempted to discharged the pt and removed her IV, pt started c/o that her headache was getting worse and she was having a hard time speaking. This literary writer explained that since her headache has been going on for months we may not be able to get her headache relieved and will require a visit with her provider and possibly a pain management consult. Pt verbalized understanding which is when she started c/o difficulty speaking. This literary writer had the provider come and talk with the pt, after speaking with her he ordered a norflex IM which has been given. Will monitor pt for 10-15min and then she will go home, pt is agreed to this plan.
[2024-01-01 21:55] VITALS: BP 149/89; PULSE 81; RESP 24; O2SAT 98
== END 2024-01-01 21:55 | disposition home or self-care (01) ==
PROVIDERS: Emergency Provider Physician Assistant; PCP Clinical Nurse Specialist Adult Health
DX: G43.819 Other migraine, intractable, without status migrainosus (principal); G89.29 Other chronic pain; I10 Essential (primary) hypertension
CPT/HCPCS: 96361; 96372; 96374; 96375; 99284; J1100; J1200; J1885; J2360; J2405; J7030

== ENCOUNTER → 2024-01-03 11:30 | Outpatient (BNVA) | payer MEDICARE, MEDICAID, SELFPAY | PROVIDERS: PCP Clinical Nurse Specialist Adult Health; Visit Provider Clinical Nurse Specialist Adult Health | DX: M79.10 Myalgia, unspecified site (principal); Z79.899 Other long term (current) drug therapy | CPT/HCPCS: 82306; 85025; 85651; 86038; 86140 ==

== ENCOUNTER → 2024-01-11 15:44 | Outpatient (BNVA) | payer MEDICARE, MEDICAID, SELFPAY | PROVIDERS: PCP Clinical Nurse Specialist Adult Health; Visit Provider Specialist | DX: G43.711 Chronic migraine without aura, intractable, with status migrainosus (principal); M54.81 Occipital neuralgia; G40.209 Localization-related (focal) (partial) symptomatic epilepsy and epileptic syndromes with complex partial seizures, not intractable, without status epilepticus | CPT/HCPCS: 64405; 64450; 99214; J1030; J3490 ==

== ENCOUNTER → 2024-02-29 08:33 | Outpatient (BNVA) | payer MEDICARE, MEDICAID, SELFPAY | PROVIDERS: PCP Clinical Nurse Specialist Adult Health; Visit Provider Nurse Practitioner Psychiatric/Mental Health | DX: Z79.899 Other long term (current) drug therapy (principal) | CPT/HCPCS: 80061; 83036 ==

== ENCOUNTER → 2024-03-14 11:54 | Outpatient (BNVA) | payer MEDICARE, OTHER, SELFPAY | PROVIDERS: PCP Clinical Nurse Specialist Adult Health; Visit Provider Clinical Nurse Specialist Adult Health | DX: I10 Essential (primary) hypertension (principal); L65.9 Nonscarring hair loss, unspecified; E55.9 Vitamin D deficiency, unspecified | CPT/HCPCS: 80053; 82306; 82607; 82728; 82746; 83540; 84443 ==

== ENCOUNTER → 2024-12-19 14:06 | Outpatient (BNVA) | payer MEDICARE, MEDICAID, SELFPAY | PROVIDERS: PCP Clinical Nurse Specialist Adult Health; Visit Provider Specialist | DX: G43.711 Chronic migraine without aura, intractable, with status migrainosus (principal); M54.81 Occipital neuralgia | CPT/HCPCS: 99214 ==